=== PATIENT | male | born 1955 | race Caucasian/White ===

== ENCOUNTER → 2016-06-28 | Outpatient (CLI) | payer MEDICARE, OTHER | END | disposition home or self-care (01) | LOC: GMAL 14:27 | PROVIDERS: ATTEND Family Medicine | DX: E53.9 Vitamin B deficiency, unspecified (principal); E55.9 Vitamin D deficiency, unspecified ==

== ENCOUNTER 2016-08-15 17:54 | Observation (INO) | payer OTHER ==
[2016-08-15] MEDS ORDERED: HYDROmorphone HCL INJ 2 MG/ML VIAL IV ONE (18:07)
--- NOTE | 2016-08-15 19:13 | CT ---
EXAM: Lumbar Spine CLINICAL INDICATION: 60-year-old male with multiple falls and pain. COMPARISON: MRI lumbar spine 08/14/2014. TECHNIQUE: CT of the lumbar spine was performed without contrast. This exam was performed according to our departmental dose optimization program which includes use of automated exposure control, adjustment of the mA and/or kV according to patient size and/or use of iterative reconstruction technique. FINDINGS: Overall imaging findings are limited secondary to motion artifact. Since examination dated 08/14/2014 there has been interval development of loss of vertebral body height within the central aspect of L2 concerning for age indeterminate compression deformity. Additionally, age indeterminate loss of anterior and central vertebral body heights of T12. There is normal alignment of the lumbar spine without additional fracture or subluxation. The facets are normal in alignment bilaterally. The posterior elements including the spinous processes are intact. Morphology and attenuation of the vertebral bodies and intervertebral disc spaces is compatible with mild multilevel degenerative change. Multilevel degenerative facet change. Incidentally noted LEFT adrenal adenoma or myelolipoma measuring 2.3 cm. Broad-based disk bulge with central disk herniation and central spinal canal narrowing, bilateral severe neuroforaminal narrowing at the L4-5 level. Mild broad-based disk bulge at L5-S1 with severe bilateral neuroforaminal narrowing. The pre-and paravertebral soft tissues are within normal limits. Extraspinal imaging is within normal limits. IMPRESSION: 1. Loss of vertebral body height concerning for age indeterminate compression deformity of the T12 and L2 vertebral levels. Further evaluation with MRI may be considered. 2. Broad-based disk bulge with central disk herniation and central spinal canal narrowing, bilateral severe neuroforaminal narrowing at the L4-5 level. Electronically signed by: Susan Alan MD 08/15/2016 7:12 PM CDT Workstation: [id number]
--- NOTE | 2016-08-15 19:49 | ED.PDOC ---
History of Present Illness - General Chief Complaint: Back Pain or Injury Stated Complaint: Fell from Wheelchair Time Seen by Provider: 08/15/16 18:07 Source: patient Exam Limitations: no limitations - History of Present Illness Initial Comments: the patient is a 60-year-old male presenting to the emergency room secondary to severe low back pain. The patient has apparently fallen a couple of times in the last few days. He has had low back pain issues in the past and does take chronic pain medications. Today he was in his wheelchair and was thrown forward after he had a pothole. The back pain got worse. No new neurological symptoms. No other injuries. He is tender to palpation from approximately T11 down through T3. No visible deformity. Timing/Duration: 24 hours Severity: severe Improving Factors: immobilization Worsening Factors: movement Associated Symptoms: denies symptoms Allergies/Adverse Reactions: Allergies Morphine Allergy (Verified 10/14/13 21:18) Home Medications: Ambulatory Orders Allopurinol [Zyloprim] 300 mg PO 09/02/13 Amlodipine Besylate 5 mg PO DAILY 09/02/13 Cyanocobalamin [Vitamin B 12] 250 mcg PO 09/02/13 Furosemide [Lasix] 20 mg PO DAILY #20 tab 09/02/13 Hydromorphone HCl 4 mg PO 09/02/13 Multivitamin 0 mg PO DAILY 09/02/13 Potassium Chloride Microencaps [Potassium Chloride Cr] 20 meq PO DAILY #20 tab 09/02/13 Pregabalin [Lyrica] 75 mg PO 09/02/13 Zolpidem Tartrate [Ambien] 10 mg PO 09/02/13 Cipro 10/14/13 Review of Systems - Review of Systems Constitutional: States: no symptoms reported EENTM: States: no symptoms reported Respiratory: States: no symptoms reported Cardiology: States: no symptoms reported Gastrointestinal/Abdominal: States: no symptoms reported Genitourinary: States: no symptoms reported Musculoskeletal: States: see HPI Skin: States: no symptoms reported Neurological: States: no symptoms reported - o change from baseline Endocrine: States: no symptoms reported All other Systems: No Change from Baseline Past Medical History (General) - Patient Medical History Hx Seizures: No Hx Stroke: Yes Hx Dementia: No Hx Asthma: Yes Hx of COPD: No Hx Cardiac Disorders: Yes Hx Congestive Heart Failure: No Hx Pacemaker: No Hx Hypertension: Yes Hx Thyroid Disease: Yes Hx Diabetes: No Hx Gastroesophageal Reflux: Yes Hx Renal Disease: No Hx Cancer: Yes Hx Hepatitis C: No Hx MRSA: Yes - staph MRSA Source:: Wound - Vaccination History Hx Tetanus, Diphtheria Vaccination: No Hx Influenza Vaccination: Yes Hx Pneumococcal Vaccination: Yes - Social History Hx Tobacco Use: No Hx Chewing Tobacco Use: No Hx Alcohol Use: No Hx Substance Use: No Hx Substance Use Treatment: No Hx Depression: No Feels Threatened In Home Enviroment: No Feels Threatened In a Relationship: No Hx Physical Abuse: No Hx Emotional Abuse: No Hx Suspected Abuse: No Family Medical History - Family History Mother Family History: No Known Physical Exam - Physical Exam General Appearance: Alert, Obvious distress Eye Exam: bilateral normal Ears, Nose, Throat: hearing grossly normal, normal ENT inspection, normal pharynx Neck: non-tender, full range of motion Respiratory: chest non-tender, lungs clear, normal breath sounds, no respiratory distress, no accessory muscle use Cardiovascular/Chest: normal peripheral pulses, regular rate, rhythm Peripheral Pulses: radial,right: 2+, radial,left: 2+, dorsalis pedis,right: 2+ Gastrointestinal/Abdominal: soft - morbidly obese Rectal Exam: deferred Back Exam: no vertebral tenderness, CVA tenderness (R), CVA tenderness (L) Extremity: normal range of motion, non-tender, no calf tenderness, normal capillary refill, pedal edema, other - AKA amputation of the left lower extremity Neurologic: alert, oriented x 3 Skin Exam: normal color Comments: Vital Signs - 24 hr 08/15/16 18:05 Temperature 99.1 F Pulse Rate [R 83 Arm] Respiratory 20 Rate Blood Pressure 153/88 [R Arm] O2 Sat by Pulse 97 Oximetry Progress - Progress Progress: 08/15/16 19:50 the patient is a 60-year-old male presenting with back pain from what appears to be an acute compression fracture at L2 and possibly also an acute compression fracture at T12. The patient has received a dose of Dilaudid here. The patient will be admitted for pain control and he will also likely need to seek therapy to be instructed on how to get around given his amputation is already present. The patient may require further radiological evaluation depending on how the fracture sites progress over time. no new neurological symptoms at this time. - EKG/XRAY/CT CT Ordered: No CT Interpretation Call Back: No Departure - Departure Clinical Impression: Compression fracture of lumbar vertebra Qualifiers: Encounter type: initial encounter Fracture type: closed Qualified Code(s): S32.000A - Wedge compression fracture of unspecified lumbar vertebra, initial encounter for closed fracture Disposition: Admit Patient Home Medications: Ambulatory Orders Allopurinol [Zyloprim] 300 mg PO 09/02/13 Amlodipine Besylate 5 mg PO DAILY 09/02/13 Cyanocobalamin [Vitamin B 12] 250 mcg PO 09/02/13 Furosemide [Lasix] 20 mg PO DAILY #20 tab 09/02/13 Hydromorphone HCl 4 mg PO 09/02/13 Multivitamin 0 mg PO DAILY 09/02/13 Potassium Chloride Microencaps [Potassium Chloride Cr] 20 meq PO DAILY #20 tab 09/02/13 Pregabalin [Lyrica] 75 mg PO 09/02/13 Zolpidem Tartrate [Ambien] 10 mg PO 09/02/13 Cipro 10/14/13 Decision To Admit - Decistion To Admit Decision to Admit Reason: Accidental Injury Decision to Admit Date: 08/15/16 Decision to Admit Time: 19:52
--- NOTE | 2016-08-15 20:28 | HP ---
SUPERVISING PHYSICIAN: René Roa MD CHIEF COMPLAINT: Back pain after fall. HISTORY OF PRESENT ILLNESS: This is a 60 year-old male patient who was in his usual state of health using his power wheelchair. He was out in his yard watering his garden. He hit a hole in the ground and went tumbling out of his power wheelchair. There was no loss of consciousness and for the most part he hit the right side of his face and his right shoulder. He also experienced some lower back pain but he says he did not fall on his back today but he has fallen twice in the last week, one time when his walker folded on him and he landed on his buttocks and a day or so later he slipped in the shower and again fell on his buttocks. He said the pain in his lower back has been off and on for the last week since those two incidences and today's injury just worsened the symptoms. He was brought to the Emergency Room and in the Emergency Room he had a lumbar spine CT that per radiology interpretation shows: 1. Loss of vertebral body height concerning for age-indeterminate compression deformity of the T12 and L2 vertebra levels. Further evaluation with MRI may be considered. 2. Broad-based disk bulge with central brandon herniation and central spinal canal narrowing, bilateral severe neuroforaminal of the L4-5 level. He was given Dilaudid in the Emergency Room and it helped with his pain and he has a history of a left [id number] amputation due to osteomyelitis as well as blindness in the right eye. I was called for admission to the hospital. PAST MEDICAL HISTORY: 1. Hypothyroidism. 2. Osteomyelitis of the left leg. 3. Peyronie's disease. 4. Gout. 5. Osteoarthritis. 6. Anxiety and panic attacks. 7. Iron-deficiency anemia. 8. Prostate cancer. 9. Obesity. 10. 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 11. Hypertension. PAST SURGICAL HISTORY: 1. Left above-knee amputation in 2013. 2. Tonsillectomy. 3. Vasectomy. 4. Gastric bypass. 5. Left total knee arthroplasty. 6. Left knee removal of prosthesis and placement of antibiotic spacer. 7. Right total knee arthroplasty. 8. Right ankle surgery. 9. Left hand surgery. CURRENT MEDICATIONS: Per EMR and awaiting verification. ALLERGIES: 1. Morphine. 2. Actos. SOCIAL HISTORY: He is . He has three children. He lives at home. He denies tobacco, ETOH or illicit drug use. REVIEW OF SYSTEMS: GENERAL: Denies fever, fatigue or weight changes. Positive for right-sided pain due to the injury earlier today. HEENT: Denies vision changes, ear pain, sore throat or sinus symptoms. RESPIRATORY: Denies wheezing, shortness of breath or coughing. CARDIAC: Denies chest pain, tachycardia or palpitations. GI: Denies abdominal pain, nausea, vomiting, diarrhea. MUSCULOSKELETAL: As per the history of present illness. GENITOURINARY: Denies hematuria, dysuria or polyuria. NEUROLOGICAL: Denies headache, dizziness or seizures. PHYSICAL EXAMINATION: VITAL SIGNS: Temperature 99.1, pulse rate 83, blood pressure 176/84 in the Emergency Room and is now 153/88. Respiratory rate 20, 02 saturation 97% on room air. GENERAL: This is a 60 year-old obese male patient who is lying in his hospital bed. HEENT: Normocephalic. There is an abrasion with a small amount of ecchymosis to the right lateral scalp area at the level of the right eye. He has an eye patch over his right eye. The left pupil is reactive. Oropharynx is clear. Oral mucous membranes are moist. NECK: Neck is supple without mass. CHEST: Clear to auscultation bilaterally. There is equal rise and fall of the chest with inspiration and expiration. CARDIOVASCULAR: Regular rate and rhythm. ABDOMEN: Soft, rounded, non-tender,. Bowel sounds are positive. BACK: Unremarkable except tender to palpation to the lower thoracic upper lumbar area. EXTREMITIES: No cyanosis or clubbing to the right lower extremity. He has a left above-knee amputation. NEUROLOGIC: He is awake, alert, and oriented x3. LABORATORY AND FILMS: There are no labs to report and films are as per the history of present illness. ASSESSMENT: 1. Compression fracture of T12 and L2 status post multiple falls over the last week. 2. Intractable pain due to #1. 3. Gout 4. Osteoarthritis. 5. History of osteomyelitis with a left above-knee amputation in 2013. PLAN: We will place the patient in observation. I have given him Dilaudid for pain. I have consulted Dr. Villanueva as well as physical therapy. I have also ordered incentive spirometry. We will restart his home medications. At some point, he will need an MRI as an outpatient. Close followup with Dr. Echols as well as his pain doctor. I have ordered some AM labs. He will be on bedrest with frequent turning. Otherwise, we will known to to monitor the patient closely and followup as needed. Dr. Roa is the collaborating physician available for consultation. #[id number] [facility]
[2016-08-15] MEDS: HYDROmorphone HCL INJ 2 MG/ML VIAL IV PRN ×2 (20:40→23:54)
[2016-08-15] MEDS ORDERED: ONDANSETRON INJ 4 MG/2 ML VIAL IV PRN (21:35)
[2016-08-15] MEDS ORDERED: IV SET AND CAP CHANGE INJ INJ SCH (22:00)
[2016-08-15] MEDS: SODIUM CHLORIDE 0.9% (FLUSH) 10 ML SYG IV PRN ×2 (23:34→23:52)
[2016-08-15] MEDS: PREGABALIN 75 MG CAP PO SCH (23:35)
[2016-08-15] MEDS: ENOXAPARIN SODIUM 40 MG/0.4 ML SYG SUBCU SCH (23:35)
[2016-08-15] MEDS: TAMSULOSIN 0.4 MG CAP PO SCH (23:36)
--- NOTE | 2016-08-16 00:41 | PCM.CORE ---
Physician DVT/VTE - Prophylaxis Currently: Patient already on anticoagulation therapy - Nurse DVT Assessment & Total Each Risk Factor Represents 1 Point: Age 41-60, Medical PT at Bed Rest Each Risk Factor is 1 Point: Obesity (BMI >25) DVT Assessment Score: 3 - 3-4 High Risk Treatments: Early Ambulation *, Sequential Compression Device
[2016-08-16] MEDS: HYDROmorphone HCL INJ 2 MG/ML VIAL IV PRN ×5 (04:05→22:18)
[2016-08-16] MEDS: SODIUM CHLORIDE 0.9% (FLUSH) 10 ML SYG IV PRN ×2 (04:05→22:18)
[2016-08-16] MEDS: LEVOTHYROXINE SODIUM 0.025 MG TAB PO SCH (06:37)
[2016-08-16] MEDS: POTASSIUM CHLORIDE 20 MEQ TAB PO SCH (08:48)
[2016-08-16] MEDS: ASPIRIN EC 81 MG TAB PO SCH (08:48)
[2016-08-16] MEDS: ALLOPURINOL 300 MG TAB PO SCH (08:48)
[2016-08-16] MEDS: cloNIDine HCL 0.1 MG TAB PO SCH ×2 (08:48→20:03)
[2016-08-16] MEDS: FUROSEMIDE 40 MG TAB PO SCH (08:48)
[2016-08-16] MEDS: FLUoxetine HCL 20 MG CAP PO SCH (08:48)
[2016-08-16] MEDS: amLODIPine BESYLATE 5 MG TAB PO SCH (08:49)
[2016-08-16] MEDS: BACLOFEN 10 MG TAB PO SCH (08:49)
[2016-08-16] MEDS: PREGABALIN 75 MG CAP PO SCH ×3 (08:49→20:03)
[2016-08-16] MEDS: MEGESTROL ACETATE 40 MG TAB PO SCH ×2 (08:49→20:03)
--- NOTE | 2016-08-16 11:57 | PN ---
DATE: 08/16/16 SUBJECTIVE: The patient complains of pain fairly well-controlled overnight. No nausea or vomiting. No shortness of breath. OBJECTIVE: VITAL SIGNS: Stable overnight. Current temperature 98.8, pulse 76, blood pressure 164/82, this has ranged from 144/79 up to 164/82. His oxygen saturation is 96% on room air, respiratory rate 18. Intake and output is positive 161 milliliters. CHEST: Clear to auscultation bilaterally. HEART: Regular rate and rhythm. ABDOMEN: Benign. EXTREMITIES: Right lower extremity does have some edema and venous stasis changes. He has had a left side above-knee amputation. LABORATORY: White blood count 6.3, hemoglobin 12.6, hematocrit 37.3, platelet count 95,000. Sodium 143, potassium 3.9, chloride 107, C02 of 28, glucose 118. CT scan of the lumbar spine done last night showed loss of vertebral height at T12 and L2 vertebral levels concerning for compression fractures. MRI was recommended. He also has broad-based disk bulge with central disk herniation and central spinal canal narrowing as well as bilateral severe neuroforaminal narrowing at the L4-5 level. ASSESSMENT: 1. Multiple compression fractures with severe intractable pain requiring IV narcotic medication in a patient who is currently nonambulatory secondary to pain, also is status post left above-knee amputation making him high risk for falls. He has already had several falls leading to the current compression fractures. 2. Intractable pain as mentioned above. . 3. History of gout 4. Osteoarthritis. 5. History of osteomyelitis with a left above-knee amputation in 2013. 6. Hypertension. 7. Hypothyroidism. 8. Hyperlipidemia. 9. Benign prostatic hypertrophy. PLAN: We will continue this patient's home medications. Will control his pain , currently is being done with Dilaudid and this seems to be working, will continue that for now. He does have evidence of compression fractures. He needs an MRI with STIR sequence done, hopefully tomorrow and if these are confirmed to be acute compression fractures he will need possible referral to a neurosurgeon. We will also ask Dr. Villanueva to consult tomorrow to see if there is a brace that could help stabilize this patient's back so we can start physical therapy. #[id number] MTDD
[2016-08-16] MEDS ORDERED: IMIPRAMINE HCL 25 MG TAB ONE (19:32)
[2016-08-16] MEDS ORDERED: PRAVASTATIN SODIUM 20 MG TAB ONE (19:33)
[2016-08-16] MEDS ORDERED: CARISOPRODOL 350 MG TAB ONE (19:33)
[2016-08-16] MEDS: IMIPRAMINE HCL 25 MG TAB PO SCH (20:02)
[2016-08-16] MEDS: TAMSULOSIN 0.4 MG CAP PO SCH (20:03)
[2016-08-16] MEDS: CARISOPRODOL 350 MG TAB PO SCH (20:03)
[2016-08-16] MEDS: PRAVASTATIN SODIUM 20 MG TAB PO SCH (20:03)
[2016-08-16] MEDS: ENOXAPARIN SODIUM 40 MG/0.4 ML SYG SUBCU SCH (22:18)
[2016-08-16] MEDS: ZOLPIDEM TARTRATE 10 MG TAB PO PRN (22:18)
[2016-08-17] MEDS: HYDROmorphone HCL INJ 2 MG/ML VIAL IV PRN ×5 (03:54→20:02)
[2016-08-17] MEDS: LEVOTHYROXINE SODIUM 0.025 MG TAB PO SCH (06:03)
[2016-08-17] MEDS: FLUoxetine HCL 20 MG CAP PO SCH (09:12)
[2016-08-17] MEDS: MEGESTROL ACETATE 40 MG TAB PO SCH ×2 (09:12→21:29)
[2016-08-17] MEDS: FUROSEMIDE 40 MG TAB PO SCH (09:12)
[2016-08-17] MEDS: PREGABALIN 75 MG CAP PO SCH ×3 (09:12→21:28)
[2016-08-17] MEDS: ASPIRIN EC 81 MG TAB PO SCH (09:12)
[2016-08-17] MEDS: amLODIPine BESYLATE 5 MG TAB PO SCH (09:12)
[2016-08-17] MEDS: cloNIDine HCL 0.1 MG TAB PO SCH ×2 (09:13→21:28)
[2016-08-17] MEDS: BACLOFEN 10 MG TAB PO SCH (09:13)
[2016-08-17] MEDS: POTASSIUM CHLORIDE 20 MEQ TAB PO SCH (09:13)
[2016-08-17] MEDS: ALLOPURINOL 300 MG TAB PO SCH (09:13)
--- NOTE | 2016-08-17 14:34 | MRI ---
EXAM DESCRIPTION: Lumbar Spine w/o Contrast CLINICAL HISTORY: compression fracture COMPARISON: Reason abnormal CT examination of the lumbar spine TECHNIQUE: MRI of the lumbar spine is performed according to our usual protocol with axial and sagittal multi sequence imaging. Pre and postcontrast imaging of was performed utilizing gadolinium enhancement. FINDINGS: Normal alignment of the vertebral column is present with mild superior endplate compression deformities involving L2 and T12 but without associated marrow edema or significant retropulsed bone to suggest an acute compression deformity. Postcontrast there is no abnormal enhancement present and old injuries are suspected. Overall image quality is degraded by the patient's large size. Retroperitoneum and paraspinous structures are grossly unremarkable. The conus is positioned at the L1 level. The thecal sac tapers below the L3-4 disc level is borderline small with moderate epidural lipomatosis noted. T12-L1 disc level is normal in appearance. L1-2: Disc desiccation and mild annular prominence and mild central impaction of the L2 superior endplate but without edema consistent with an old Schmorl's node or endplate injury. L2-3: the disc is well hydrated. There is no loss of height. There is no bulging. The facets are unremarkable with no significant hypertrophy. There is no stenosis or impingement. L3-4: the disc is well hydrated. There is no loss of height. There is no bulging. The facets are unremarkable with no significant hypertrophy. There is no stenosis or impingement. L4-5: Disc desiccation and broad-based annular bulge with modest right greater than left facet arthropathy. Moderate bilateral foraminal narrowing with thecal sac in the lower range of normal but without severe stenosis. L5-S1: Mild annular bulge with thecal sac in the lower range of normal with moderate right greater than left facet arthropathy and bilateral L5 foraminal narrowing. IMPRESSION: 1. Mild T12 and moderate L2 superior endplate impaction fractures. No associated edema or retropulsed bone is evident in the appearance is that of old mild superior endplate compression fractures. 2. Essentially normal examination from L3-4 cephalad with minimal annular prominence at L1-2. 3. Broad-based annular bulge and moderate right greater than left facet arthropathy at L4-5 with thecal sac lower limits of normal and moderate L4 foraminal narrowing. 4. Milder annular bulge L5-S1 with more advanced right greater than left facet arthropathy, again with bilateral L5 foraminal narrowing with adequate central canal Electronically signed by: René Miranda MD 08/17/2016 2:33 PM CDT
--- NOTE | 2016-08-17 14:57 | MRI ---
Study: MRI of the Thoracic Spine. Indication: compression fracture Technique: Multiplanar, multi sequence MRI of the thoracic spine was obtained without intravenous contrast. Comparison: MRI lumbar, same day. Findings: Acute T9 superior endplate fracture noted with 10% central height loss. The marrow edema parallels the superior endplate. No retropulsion. Acute T10 inferior endplate fracture noted with 15% height loss and surrounding marrow edema. No retropulsion. Minimal marrow edema noted in the posterior superior margin of the T11 vertebral body and may reflect Modic type I endplate changes or a very subtle/early T11 superior endplate fracture. Mild thoracic disc disease noted and most pronounced at T4-T5 where there is a 3.5 mm right paracentral disc extrusion extending slightly above and below the disc space level but without spinal canal narrowing or neural foraminal narrowing at any thoracic disc space level. Impression: Acute T9 and T10 vertebral body fractures as above. These would be amenable to percutaneous vertebral body augmentation as clinically indicated. Mild Modic type I endplate change posterior superior margin T11 vertebral body versus a nondisplaced fracture. Short-term follow-up may prove useful. Electronically signed by: Karl Del Rio MD 08/17/2016 2:55 PM CDT
--- NOTE | 2016-08-17 21:01 | PN ---
DATE: 08/17/16 SUBJECTIVE: The patient is lying in the bed, head elevated. His appetite is not as good as normal. He states that even with slight movement he has excruciating pain radiating from his low thoracic spine around both rib cages towards the front. Any type of twisting action especially makes it worse. He is having difficulty walking because of the severity of the pain. History of retinal infarction apparently with a retinal artery occlusion in the past has resulted in blindness in his right eye. OBJECTIVE: Temperature 95.6, blood pressure 110/66, room air saturation 97%. The patient is awake and alert. He admits to significant pain and hopes that something can be done quickly to assist with relieving that pain. He complains of chronic pain in his lumbar spine area but his main pain is probably in the lower thoracic spine on exam. HEART: Tones somewhat distant. LUNGS: Sounds are somewhat diminished with some rhonchi laterally more on the right than the left. ABDOMEN: Obese yet soft. LABORATORY: White count 6,700, hemoglobin 13. Chemistries show potassium 4.1, BUN 22, creatinine 0.8, glucose 121. Albumin 3.3. MRSA shows no growth. X-RAY: The patient did have lumbar spine MRI which showed advanced degenerative changes. Please refer to the report. The patient did have a thoracic spine MR study which showed an acute T9 and T10 vertebral body compression fracture which the radiologist suggested was amendable to kyphoplasty procedure. Possible fracture also present in T11 end plate with followup necessary. ASSESSMENT: 1. Acute fall about 10 and again 9 days prior to admission. 2. Acute compression vertebral fractures of T9 and 10, and possible end plate of T11 very symptomatic with intractable pain requiring analgesic pain program and further investigation and evaluation for possible kyphoplasty to be considered. 3. 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 4. Osteoarthritis. 5. History of gout. 6. History of osteomyelitis with an left [id number] amputation in 2013. 7. History of hypertension. 8. History of hypothyroidism. 9. History of hyperlipidemia. 10. History of benign prostatic hypertrophy. PLAN: The condition is discussed with Dr. Echols who suggested us to try to get Dr. Alfonso in [facility] or refer to the Interventional Radiologist at [facility] for evaluation for tentative kyphoplasty procedures for pain relief. At this time, it is after hours and the patient and his are discussing whether they would prefer to go to [place] or to [facility] where she had previously had a back surgery performed years ago. This decision will be available and ready in the morning at which time wither [place] or [facility] will be contacted. Copies of the MR studies to accompany the patient and the patient hopefully will be able to be approached with a kyphoplasty procedure and continue on with some significant pain relief. #[id number] MTDD
[2016-08-17] MEDS: PRAVASTATIN SODIUM 20 MG TAB PO SCH (21:28)
[2016-08-17] MEDS: ZOLPIDEM TARTRATE 10 MG TAB PO PRN (21:28)
[2016-08-17] MEDS: CARISOPRODOL 350 MG TAB PO SCH (21:28)
[2016-08-17] MEDS: TAMSULOSIN 0.4 MG CAP PO SCH (21:28)
[2016-08-17] MEDS: IMIPRAMINE HCL 25 MG TAB PO SCH (21:28)
[2016-08-17] MEDS: ENOXAPARIN SODIUM 40 MG/0.4 ML SYG SUBCU SCH (21:29)
[2016-08-18] MEDS: LEVOTHYROXINE SODIUM 0.025 MG TAB PO SCH (05:59)
[2016-08-18] MEDS: HYDROmorphone HCL INJ 2 MG/ML VIAL IV PRN ×3 (06:03→12:34)
[2016-08-18] MEDS: POTASSIUM CHLORIDE 20 MEQ TAB PO SCH (09:00)
[2016-08-18] MEDS: PREGABALIN 75 MG CAP PO SCH (09:00)
[2016-08-18] MEDS: MEGESTROL ACETATE 40 MG TAB PO SCH (09:00)
[2016-08-18] MEDS: cloNIDine HCL 0.1 MG TAB PO SCH (09:02)
[2016-08-18] MEDS: ASPIRIN EC 81 MG TAB PO SCH (09:02)
[2016-08-18] MEDS: amLODIPine BESYLATE 5 MG TAB PO SCH (09:03)
[2016-08-18] MEDS: BACLOFEN 10 MG TAB PO SCH (09:03)
[2016-08-18] MEDS: FLUoxetine HCL 20 MG CAP PO SCH (09:03)
[2016-08-18] MEDS: ALLOPURINOL 300 MG TAB PO SCH (09:03)
[2016-08-18] MEDS: FUROSEMIDE 40 MG TAB PO SCH (09:03)
[2016-08-18 10:29] VITALS: BP 107/68; TEMP 98.9; O2SAT 96
--- NOTE | 2016-08-19 08:56 | DS ---
SUPERVISING PHYSICIAN: René Roa MD DISCHARGE DIAGNOSIS: 1. Acute fall 9 to 10 days prior to admission with acute compression fractures with vertebral fractures of T9 and T10 with possible endplate of T11, very symptomatic with intractable pain, requiring aggressive analgesic pain program and kyphoplasty referral. 2. 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 3. Osteoarthritis. 4. Multiple comorbidities to include gout, hypertension, hypothyroidism, hyperlipidemia, benign prostatic hypertrophy, and history of past osteomyelitis and left [id number] amputation in 2013, making recovery from acute compression fractures difficult. HISTORY OF PRESENT ILLNESS: Mr. Mora is a 60-year-old, male patient who was in his usual state of health using his power wheelchair when he was out in his yard watering his garden. He hit a hole in the ground and went tumbling out of his power wheelchair. There was no loss of consciousness and for the most part, he landed on the right side of his face and his right shoulder. He also experienced some lower back pain, but he says he did not fall on his back on the day of admission, but he has fallen twice in the last week, one time when his walker folded on him and he landed on his buttocks and a day or so later he slipped in the shower and again fell on his buttocks. He said the pain in his lower back has been off and on for the last week since those two incidences and the injury on the day of admission worsened the symptoms and brought himself to the Emergency Department. In the Emergency Department, he had a CT of the lumbar spine that per radiology interpretation shows loss of vertebral body height concerning for age-indeterminate compression deformity of the T12 and L2 vertebral levels. After repeat MRI for confirmation, it was noted that he did have acute compression fractures involving T9 and T10 with some mild Modic type I endplate changes of posterior superior margin of T11 versus a nondisplaced fracture. He was given Dilaudid in the Emergency Room for his pain and it helped a little bit. Given his history of a left [id number] amputation due to osteomyelitis as well as blindness in the right eye, it was felt in the best interest of the patient due to the severity of his pain and his immobility and safety, to be admitted to the hospital for further pain management and to assist with getting into neurosurgery for definitive treatment of the acute fractures. LABORATORY: On admission, white count 6.3 and at discharge was 6.7. Hemoglobin 13.0 and hematocrit 38.7. Platelet count 111,000 with an early left shift. Chemistries showed normal electrolytes both on admission and on discharge. BUN 22, creatinine 0.8, calcium 8.6. Liver functions within normal limits. Alkaline phosphatase was elevated at 144. Urinalysis was within normal limits. MICROBIOLOGY: No specimens other than MRSA surveillance culture collected which showed no growth at 72 hours. RADIOLOGY: Initially, he had a lumbar spine CT in the Emergency Department and per radiologic interpretation, there was note of loss of vertebral body height concerning of age-indeterminate compression deformity at T12 and L2 vertebral levels with broad-based disc bulge and centra disc herniation and central spinal narrowing, bilateral severe neuroforaminal narrowing at L4-L5. This was followed up after admission with a lumbar spine and thoracic spine MRI and per radiologic interpretation, there was note of a mild T12 and moderate L2 superior endplate impaction fracture, no associated edema or retropulsed bone evident, appearance of what is a mild superior endplate compression fracture. Thoracic spine MRI per radiologic interpretation noted acute T9 and T10 vertebral body fractures that would be amenable to percutaneous vertebral body augmentation as clinically indicated. There was note of a mild Modic type 1 endplate change of posterior superior margin of T11 vertebral body versus nondisplaced fracture. HOSPITAL COURSE: Mr. Mora was admitted as noted in history of present illness for acute vertebral fractures for severe pain management and to assist with ambulation as he was a unilateral amputee jyoli-fcc-youy, making it very difficult for him to ambulate safely and to facilitate transfer definitive treatment with neurosurgery. On the morning of discharge, I did talk with Dr. Padron in [place], neurosurgery, who agreed to take the patient in transfer to [facility]. PLAN: The patient was transferred to [facility] to Dr. Padron, neurosurgery, higher level of care for possible kyphoplasty procedure not available at [facility]. He was transferred via ground ambulance secondary to his handicap and inability to mobilize or sit in a wheelchair safely. He was instructed to resume his home medications as prior to arrival to the hospital and followup with Dr. Echols once discharged from [facility] as directed. Diet at discharge was NPO until seen at [facility]. Activity was bedrest until seen by Dr. Padron. Condition was stable, but guarded secondary to acute compression fractures. #[id number] [facility]
== END 2016-08-18 12:50 | disposition short-term general hospital (02) ==
LOC: ER 17:54 → INTOOBSV 20:26 → MS 20:26
PROVIDERS: ADMIT Nurse Practitioner Acute Care; ATTEND Nurse Practitioner Family
DX: S22.070A Wedge compression fracture of T9-T10 vertebra, initial encounter for closed fracture (principal); S22.080A Wedge compression fracture of T11-T12 vertebra, initial encounter for closed fracture; S32.020A Wedge compression fracture of second lumbar vertebra, initial encounter for closed fracture; G89.11 Acute pain due to trauma; M47.816 Spondylosis without myelopathy or radiculopathy, lumbar region; M51.26 Other intervertebral disc displacement, lumbar region; M19.90 Unspecified osteoarthritis, unspecified site; M10.9 Gout, unspecified; I10 Essential (primary) hypertension; E03.9 Hypothyroidism, unspecified; E78.5 Hyperlipidemia, unspecified; N40.0 Benign prostatic hyperplasia without lower urinary tract symptoms; H54.41 Blindness, right eye, normal vision left eye; N48.6 Induration penis plastica; F41.9 Anxiety disorder, unspecified; F41.0 Panic disorder [episodic paroxysmal anxiety]; V00.811A Fall from moving wheelchair (powered), initial encounter; Y93.H2 Activity, gardening and landscaping; Y92.007 Garden or yard of unspecified non-institutional (private) residence as the place of occurrence of the external cause; Z79.82 Long term (current) use of aspirin; Z79.899 Other long term (current) drug therapy; Z88.6 Allergy status to analgesic agent; Z88.8 Allergy status to other drugs, medicaments and biological substances; Z89.612 Acquired absence of left leg above knee; Z85.46 Personal history of malignant neoplasm of prostate; Z86.2 Personal history of diseases of the blood and blood-forming organs and certain disorders involving the immune mechanism; Z98.84 Bariatric surgery status; Z98.52 Vasectomy status; Z96.652 Presence of left artificial knee joint
CPT/HCPCS: 36415 ×2; 72131; 72146; 72148; 80053 ×2; 81001; 85025 ×2; 87070; 94760 ×14; 96372 ×3; 96374; 96376 ×4; 99284; G0378; J1170 ×16; J1650 ×3; J8999 ×5

== ENCOUNTER 2016-08-26 12:12 | Emergency (ER) | payer OTHER ==
[2016-08-26 12:34] VITALS: TEMP 97.9
[2016-08-26] MEDS ORDERED: HYDROmorphone HCL INJ 2 MG/ML VIAL IM ONE (12:45)
--- NOTE | 2016-08-26 12:52 | ED.PDOC ---
History of Present Illness - General Chief Complaint: Back Pain or Injury Stated Complaint: back pain Time Seen by Provider: 08/26/16 12:38 Source: patient Exam Limitations: no limitations - History of Present Illness Initial Comments: Patient presents with mid back pain. He recently had surgery for T11 fracture ( two weeks ago). He has a left AKA. He mowed 3 acres with a riding mower yesterday and now he is in so much pain that he can't sleep. He is taking hydrocodone but he says it is not enough. He is worried that he might have worsened something by his physical activity. Pain is constant, non-radiating, and aching. Multiple previous episodes. Timing/Duration: 24 hours Severity: moderate Improving Factors: rest Worsening Factors: movement Associated Symptoms: denies symptoms Allergies/Adverse Reactions: Allergies Morphine Allergy (Verified 10/14/13 21:18) Home Medications: Ambulatory Orders Allopurinol [Zyloprim] 300 mg PO DAILY 09/02/13 Amlodipine Besylate 5 mg PO DAILY 09/02/13 Cyanocobalamin [Vitamin B 12] 1,000 mcg PO DAILY 09/02/13 Multivitamin 2 tablet PO DAILY 09/02/13 Pregabalin [Lyrica] 150 mg PO TID 09/02/13 Zolpidem Tartrate [Ambien] 10 mg PO BEDTIME 09/02/13 Aspirin [Aspirin Adult Low Dose] 81 mg PO DAILY 08/15/16 Baclofen 10 mg PO DAILY 08/15/16 Carisoprodol 350 mg PO BEDTIME 08/15/16 Cholecalciferol [Vitamin D3] 5,000 unit PO DAILY 08/15/16 Clonidine HCl 0.1 mg PO BID 08/15/16 Ferrous Sulfate [Iron] 65 mg PO BEDTIME 08/15/16 Fluoxetine HCl [Prozac] 40 mg PO DAILY 08/15/16 Furosemide [Lasix] 80 mg PO DAILY 08/15/16 Imipramine HCl 50 mg PO BEDTIME 08/15/16 Levothyroxine Sodium [Synthroid] 0.025 mg PO 0700 08/15/16 Lovastatin 20 mg PO BEDTIME 08/15/16 Megestrol Acetate 20 mg PO BID 08/15/16 Potassium Chloride Microencaps [Potassium Chloride Cr] 40 meq PO DAILY 08/15/16 Tamsulosin [Flomax] 0.4 mg PO BEDTIME 08/15/16 Review of Systems - Review of Systems Constitutional: States: no symptoms reported EENTM: States: no symptoms reported Respiratory: States: no symptoms reported Cardiology: States: no symptoms reported Gastrointestinal/Abdominal: States: no symptoms reported Genitourinary: States: no symptoms reported Musculoskeletal: States: see HPI Skin: States: no symptoms reported Neurological: States: no symptoms reported Endocrine: States: no symptoms reported Hematologic/Lymphatic: States: no symptoms reported Past Medical History (General) - Patient Medical History Hx Seizures: No Hx Stroke: Yes Hx Dementia: No Hx Asthma: No Hx of COPD: No Hx Cardiac Disorders: Yes Hx Congestive Heart Failure: No Hx Pacemaker: No Hx Hypertension: Yes Hx Thyroid Disease: Yes Hx Diabetes: No Hx Gastroesophageal Reflux: Yes Hx Renal Disease: No Hx Cancer: Yes - Prostate Hx Hepatitis C: No Hx MRSA: Yes MRSA Source:: Wound Surgical History: gastric bypass, tonsillectomy - Vaccination History Hx Tetanus, Diphtheria Vaccination: No Hx Influenza Vaccination: Yes Hx Pneumococcal Vaccination: Yes - Social History Hx Tobacco Use: Yes Hx Chewing Tobacco Use: No Hx Alcohol Use: No Hx Substance Use: No Hx Substance Use Treatment: No Hx Depression: No Hx Physical Abuse: No Hx Emotional Abuse: No Hx Suspected Abuse: No Family Medical History - Family History Mother Family History: No Known Physical Exam - Physical Exam General Appearance: Alert Neck: non-tender, full range of motion, supple Respiratory: lungs clear Cardiovascular/Chest: regular rate, rhythm Gastrointestinal/Abdominal: normal bowel sounds, non tender, soft Back Exam: vertebral tenderness - over T9-L1 Extremity: other - left AKA Progress - Progress Progress: 08/26/16 14:34 CT thoracic and lumbar vertebrae showed surgical hardware in place. No definite new fractures. Patient given a short term supply of Percocet to take at night with instructions to call his surgeon and his pcp today and schedule an appointment. Departure - Departure Clinical Impression: Fracture, thoracic vertebra, compression Disposition: Discharge to Home or Self Care Departure Forms: ED Discharge - Pt. Copy, Patient Portal Self Enrollment Diet: resume usual diet Activity: other - as per your surgeon's instructions Referrals: Adrian Echols III, MD [Primary Care Provider] - 1-2 Weeks Home Medications: Ambulatory Orders Allopurinol [Zyloprim] 300 mg PO DAILY 09/02/13 Amlodipine Besylate 5 mg PO DAILY 09/02/13 Cyanocobalamin [Vitamin B 12] 1,000 mcg PO DAILY 09/02/13 Multivitamin 2 tablet PO DAILY 09/02/13 Pregabalin [Lyrica] 150 mg PO TID 09/02/13 Zolpidem Tartrate [Ambien] 10 mg PO BEDTIME 09/02/13 Aspirin [Aspirin Adult Low Dose] 81 mg PO DAILY 08/15/16 Baclofen 10 mg PO DAILY 08/15/16 Carisoprodol 350 mg PO BEDTIME 08/15/16 Cholecalciferol [Vitamin D3] 5,000 unit PO DAILY 08/15/16 Clonidine HCl 0.1 mg PO BID 08/15/16 Ferrous Sulfate [Iron] 65 mg PO BEDTIME 08/15/16 Fluoxetine HCl [Prozac] 40 mg PO DAILY 08/15/16 Furosemide [Lasix] 80 mg PO DAILY 08/15/16 Imipramine HCl 50 mg PO BEDTIME 08/15/16 Levothyroxine Sodium [Synthroid] 0.025 mg PO 0700 08/15/16 Lovastatin 20 mg PO BEDTIME 08/15/16 Megestrol Acetate 20 mg PO BID 08/15/16 Potassium Chloride Microencaps [Potassium Chloride Cr] 40 meq PO DAILY 08/15/16 Tamsulosin [Flomax] 0.4 mg PO BEDTIME 08/15/16 Additional Instructions: Take medications as prescribed. Do not take the Percocet with the hydrocodone. Call your surgeon to schedule an evaluation of your back. Call your primary care physician or pain control physician to schedule an appointment concerning future pain control.
[2016-08-26 13:39] VITALS: BP 135/76; O2SAT 95
--- NOTE | 2016-08-26 13:46 | CT ---
EXAM DESCRIPTION: Thoracic Spine CLINICAL HISTORY: back pain, recent surgery COMPARISON: MRI August 17, 2016 TECHNIQUE: Noncontrast transaxial CT images of the thoracic spine are obtained with coronal and sagittal reconstructed images. This exam was performed according to our departmental dose-optimization program, which includes automated exposure control, adjustment of the mA and/or kV according to patient size and/or use of iterative reconstruction technique . FINDINGS: There are interval postprocedural changes from vertebral augmentation of the compression deformities at T9 and T10. Less than 25% loss of vertebral body height is seen. There is evidence of methylmethacrylate extending into the epidural plexus veins posterior to the vertebral bodies the spinal canal contributing to the mild narrowing of the spinal canal. There is some left foraminal encroachment at T9-10. There is also some methylmethacrylate in the anterior and lateral veins. Remote anterior wedge compression deformity of T12 is seen. No new compression deformity or loss of vertebral body height is seen. Normal alignment of the thoracic spine is seen. Anterior right disc bulging and marginal endplate osteophytes are seen throughout the mid to lower thoracic spine. Osseous structures are diffusely osteopenic. Surrounding soft tissues are unremarkable. Linear areas of probable atelectasis in the lung bases is seen. IMPRESSION: Interval postsurgical changes from vertebral augmentation at T9 and T10 without progressive loss of vertebral body height or new compression fracture deformity of the thoracic spine. Some methylmethacrylate extending into the anterior and posterior venous plexus is noted. This contributes to mild spinal canal stenosis from T9 through T10 with mild left foraminal encroachment at T9-10. Remote compression fracture deformity of the superior plate of T12 is noted. Multilevel disc degenerative changes and facet arthropathy of the thoracic spine is seen. Electronically signed by: Kris Arana MD 08/26/2016 1:44 PM CDT
--- NOTE | 2016-08-26 13:52 | CT ---
EXAM DESCRIPTION: Lumbar Spine CLINICAL HISTORY: 60 years, Male, back pain , recent surgery COMPARISON: August 15, 2016 TECHNIQUE: CT of the lumbar spine was performed without IV contrast. This exam was performed according to our departmental dose-optimization program, which includes automated exposure control, adjustment of the mA and/or kV according to patient size and/or use of iterative reconstruction technique. FINDINGS: There is subtle lucency involving the superior endplate of T11 only partially included on the first image of this exam. This probably stable from August 15, 2016. Mild compression of the L2 body is related to a Schmorl's node in the superior endplate of L2 and is stable. No acute lumbar vertebral body compression fracture or subluxation is identified. Degenerative changes are noted in the sacroiliac joints bilaterally including fusion of the bilateral sacroiliac joints anteriorly. The intervertebral disc spaces are well-maintained. There is facet joint degeneration at several levels in the lumbar spine, worse at L5-S1 with possible mild central canal or neuroforaminal stenosis at L4-5 and L5-S1. The paraspinal and visualized retroperitoneal soft tissues are unremarkable except for a 2.3 cm left adrenal myelolipoma of doubtful clinical significance. IMPRESSION: Facet joint degeneration and ligamentum flavum thickening at several levels in the lower lumbar spine resulting in mild central canal and mild neuroforaminal stenosis at L4-5 and L5-S1. Subtle lucency in the superior endplate of T11 only partially included on the first image of this exam. No definite T11 compression deformity but, if clinically suspicious of T11 compression fracture, CT or MRI of this level is recommended. Degenerative changes in both sacroiliac joints including anterior fusion bilaterally. 2.3 cm left adrenal myelolipoma. Electronically signed by: Irwin Reddy MD 08/26/2016 1:50 PM CDT Workstation: [email or web address]
== END 2016-08-26 14:45 | disposition home or self-care (01) ==
LOC: ER 12:12
DX: S22.089D Unspecified fracture of T11-T12 vertebra, subsequent encounter for fracture with routine healing (principal); I10 Essential (primary) hypertension; Z86.73 Personal history of transient ischemic attack (TIA), and cerebral infarction without residual deficits; Z89.612 Acquired absence of left leg above knee; Z88.6 Allergy status to analgesic agent; Z79.82 Long term (current) use of aspirin; Z79.899 Other long term (current) drug therapy; Z86.14 Personal history of Methicillin resistant Staphylococcus aureus infection; Z85.46 Personal history of malignant neoplasm of prostate; Z98.84 Bariatric surgery status
CPT/HCPCS: 72128; 72131; J1170

== ENCOUNTER → 2016-09-01 | Outpatient (CLI) | payer OTHER | LOC: GMAL 17:31 | PROVIDERS: ATTEND Family Medicine | DX: E55.9 Vitamin D deficiency, unspecified (principal) ==

== ENCOUNTER → 2016-12-15 | Outpatient (CLI) | payer OTHER ==
--- NOTE | 2016-12-16 18:13 | NM ---
EXAM DESCRIPTION: Bone Scan, 3Phase CLINICAL HISTORY: HX OF OSTEOMYELITIS COMPARISON: None Available. RADIOPHARMACEUTICAL: 28 mCi technetium 99 M MDP IV FINDINGS: The flow is normal. Blood pool images demonstrate minimal soft tissue uptake over the region of the patella. Delayed static imaging demonstrates photopenia suggestive of a total knee arthroplasty. Mild uptake is observed in the femur and tibia consistent with a knee arthroplasty. There is moderate uptake in the patella. The findings are felt most consistent with trauma and/or loosening. No evidence is seen to suggest osteomyelitis. IMPRESSION: 1. The exam suggests a right total knee arthroplasty. 2. Uptake is observed in the patellofemoral and felt most consistent with loosening of a portion of the prosthesis or trauma or arthritis. No evidence of osteomyelitis is seen. Electronically signed by: Adrian Menjivar MD 12/16/2016 6:12 PM CDT
== END | disposition home or self-care (01) ==
LOC: NM 09:09
PROVIDERS: ATTEND Orthopaedic Surgery
DX: Z87.39 Personal history of other diseases of the musculoskeletal system and connective tissue (principal)
CPT/HCPCS: 78315; A9503

== ENCOUNTER → 2017-02-24 | Outpatient (CLI) | payer OTHER | END | disposition home or self-care (01) | LOC: GMAL 14:04 | PROVIDERS: ATTEND Family Medicine | DX: R53.82 Chronic fatigue, unspecified (principal) ==

== ENCOUNTER → 2017-07-03 | Outpatient (CLI) | payer OTHER | LOC: GMA 16:41 | PROVIDERS: ATTEND Family Medicine | DX: R53.82 Chronic fatigue, unspecified (principal) ==

== ENCOUNTER → 2017-10-18 | Outpatient (CLI) | payer OTHER | LOC: GMAL 16:58 | PROVIDERS: ATTEND Family Medicine | DX: M10.9 Gout, unspecified (principal) ==

== ENCOUNTER 2017-10-25 03:11 | Inpatient (IN) | payer OTHER ==
--- NOTE | 2017-10-25 03:52 | ED.PDOC ---
History of Present Illness - General Chief Complaint: Fever Stated Complaint: my leg is killing me, Im freezing, and SOB Time Seen by Provider: 10/25/17 03:29 Source: patient Exam Limitations: no limitations - History of Present Illness Initial Comments: Tashi Mora 62 y/o male stated his right leg was red and with sharp pains started about 2200 H last night then gradually got worse with fever/chills.and sob/felt like wheezing.No diabetes stated right leg chronically swelled up. Timing/Duration: this evening Fever Severity/Quality: greater than 102 F Fever Therapy ZIGZAG ELASTIC ATTACHER: none Associated Symptoms: other - see hpi Review of Systems - Review of Systems Constitutional: States: no symptoms reported EENTM: States: no symptoms reported Respiratory: States: see HPI, wheezing Cardiology: States: no symptoms reported Gastrointestinal/Abdominal: States: no symptoms reported Genitourinary: States: no symptoms reported Musculoskeletal: States: see HPI Skin: States: see HPI Neurological: States: no symptoms reported Past Medical History (General) - Patient Medical History Hx Seizures: No Hx Stroke: Yes Hx Dementia: No Hx Asthma: No Hx of COPD: No Hx Cardiac Disorders: Yes Hx Congestive Heart Failure: No Hx Pacemaker: No Hx Hypertension: Yes Hx Thyroid Disease: Yes Hx Diabetes: No Hx Gastroesophageal Reflux: Yes Hx Renal Disease: No Hx Cancer: Yes - Prostate Hx Hepatitis C: No Hx MRSA: Yes MRSA Source:: Wound Surgical History: gastric bypass, tonsillectomy, other - left AKA;knee right - Vaccination History Hx Tetanus, Diphtheria Vaccination: No Hx Influenza Vaccination: Yes Hx Pneumococcal Vaccination: Yes - Social History Hx Tobacco Use: Yes Hx Chewing Tobacco Use: No Hx Alcohol Use: No Hx Substance Use: No Hx Substance Use Treatment: No Hx Depression: No Hx Physical Abuse: No Hx Emotional Abuse: No Hx Suspected Abuse: No Family Medical History - Family History Mother Family History: No Known Hx Family Congestive Heart Failure: Yes - mom Hx Family;Other: dad-Liver cirrhosis Physical Exam - Physical Exam General Appearance: Alert, Comfortable, No apparent distress, Obese Eye Exam: bilateral normal ENT Exam: normal ENT inspection, hearing grossly normal Neck: supple, normal inspection, trachea midline Respiratory: chest non-tender, no respiratory distress, no accessory muscle use , wheezing - mild Cardiovascular/Chest: normal peripheral pulses, regular rate, rhythm, no murmur Gastrointestinal/Abdominal: non tender, soft Extremity: inflammation - erythema ,warmth, pedal edema, other - tenderness right leg;Left AKA Neurologic: alert, oriented x 3 Skin Exam: warm/dry Progress - Progress Progress: 10/25/17 04:47 Vital Signs - 8 hr 10/25/17 10/25/17 03:20 03:43 Temperature 103.5 F H Pulse Rate [ 100 H Right] Respiratory 20 20 Rate Blood Pressure 157/73 [Left Arm] O2 Sat by Pulse 95 Oximetry - Results/Orders Results/Orders: 10/25/17 03:30 COMPLETE METABOLIC PROFILE Stat LACTIC ACID Stat 10/25/17 03:56 BLOOD CULTURE Stat URINALYSIS Stat 10/25/17 05:11 Vancomycin HCl Inj 1,000 mg Sodium Chloride 0.9% 250Ml [NS 250ml] 250 ml IVPB ONCE Laboratory Results - last 24 hr 10/25/17 03:30 WBC 9.5 RBC 4.53 L Hgb 14.3 Hct 42.7 MCV 94.2 H MCH 31.5 H MCHC 33.5 RDW 14.9 H Plt Count 72 L MPV 8.9 Absolute Neuts (auto) 8.60 H Absolute Lymphs (auto) 0.40 L Absolute Monos (auto) 0.40 Absolute Eos (auto) 0.10 Absolute Basos (auto) 0.10 Neutrophils % 90.4 H Lymphocytes % 4.3 L Monocytes % 3.8 Eosinophils % 0.8 L Basophils % 0.7 - EKG/XRAY/CT XRAY: chest - no acute disease Departure - Departure Clinical Impression: Cellulitis of leg without foot, right, Temporary low platelet count Time of Disposition: 06:08 Disposition: Admit Patient Condition: Fair Departure Forms: Patient Portal Self Enrollment Referrals: Adrian Echols III, MD [Primary Care Provider] - 1-2 Weeks Home Medications: Ambulatory Orders Allopurinol [Zyloprim] 300 mg PO DAILY 09/02/13 Amlodipine Besylate 5 mg PO DAILY 09/02/13 Cyanocobalamin [Vitamin B 12] 1,000 mcg PO DAILY 09/02/13 Multivitamin 2 tablet PO DAILY 09/02/13 Pregabalin [Lyrica] 150 mg PO TID 09/02/13 Zolpidem Tartrate [Ambien] 10 mg PO BEDTIME 09/02/13 Aspirin [Aspirin Adult Low Dose] 81 mg PO DAILY 08/15/16 Baclofen 10 mg PO DAILY 08/15/16 Carisoprodol 350 mg PO BEDTIME 08/15/16 Cholecalciferol [Vitamin D3] 5,000 unit PO DAILY 08/15/16 Clonidine HCl 0.1 mg PO BID 08/15/16 Ferrous Sulfate [Iron] 65 mg PO BEDTIME 08/15/16 Fluoxetine HCl [Prozac] 40 mg PO DAILY 08/15/16 Furosemide [Lasix] 80 mg PO DAILY 08/15/16 Imipramine HCl 50 mg PO BEDTIME 08/15/16 Levothyroxine Sodium [Synthroid] 0.025 mg PO 0700 08/15/16 Lovastatin 20 mg PO BEDTIME 08/15/16 Megestrol Acetate 20 mg PO BID 08/15/16 Potassium Chloride Microencaps [Potassium Chloride Cr] 40 meq PO DAILY 08/15/16 Tamsulosin [Flomax] 0.4 mg PO BEDTIME 08/15/16 Decision To Admit - Decistion To Admit Decision to Admit Reason: Admit from ER Decision to Admit Date: 10/25/17 - D/ W Jose Capone-ANP/Hospitalist Decision to Admit Time: 06:06
--- NOTE | 2017-10-25 04:26 | RAD ---
Chest single view on 10/25/2017 CLINICAL INDICATION: Wheezing COMPARISON: 09/02/2013 FINDINGS: There is slight elevation of the right hemidiaphragm. There is mild linear atelectasis or scarring in the right lung base. The lungs are otherwise clear. Cardiac, hilar and mediastinal contours are within normal limits. IMPRESSION: No acute disease. Electronically signed by: Tulio Husain 10/25/2017 4:25 AM CDT
[2017-10-25] MEDS ORDERED: fentaNYL CITRATE INJ 50 MCG/ML AMP IV ONE ×2 (04:46→07:30)
[2017-10-25] MEDS ORDERED: ACETAMINOPHEN 325 MG TAB PO ONE (04:48)
[2017-10-25] MEDS ORDERED: VANCOMYCIN HCL INJ 1,000 MG in SODIUM CHLORIDE 0.9% 250ML 250 ML IVPB ONE (05:11)
[2017-10-25] MEDS ORDERED: SODIUM CHLORIDE 0.9% 250ML 250 ML ONE ×3 (05:16→20:38)
[2017-10-25] MEDS ORDERED: VANCOMYCIN HCL INJ 1,000 MG VIAL IVPB ONE ×3 (05:16→20:39)
--- NOTE | 2017-10-25 06:58 | HP ---
SUPERVISING PHYSICIAN: René Roa MD CHIEF COMPLAINT: Fever and right lower leg pain. HISTORY OF PRESENT ILLNESS: This is a 62-year-old male patient who complained of right lower leg redness with pain that started the night prior to his admission. He felt like the pain in his lower leg had been going on for about month, but it worsened to the point last night that he had to come to the Emergency Room plus he had a fever of over 103. In the Emergency Room, his vital signs were basically within normal limits with the exception of his temperature of 103.6 and his heart rate got up to as high as 110. His laboratory showed a normal white count of 9,500, but he had a left shift on differential. Electrolytes were basically within normal limits, but his glucose was 175 and his lactic acid was 2.1. In the Emergency Room, blood cultures were drawn. His right lower leg was warm to touch and he does have some chronic lower leg ischemic changes, but his lower leg was edematous, warm to touch and erythematous. There was no noted drainage or fluctuance. He was given vancomycin as well as some fentanyl and Tylenol. The patient was admitted to the hospital for right lower leg cellulitis. PAST MEDICAL HISTORY: 1. Hypothyroidism. 2. Osteomyelitis of the left leg resulting in amputation in 2013. 3. Peyronie's disease. 4. Gout. 5. Osteoarthritis. 6. Anxiety and panic attacks. 7. Iron deficiency anemia. 8. Prostate cancer. 9. Obesity. 10. 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 11. Hypertension. 12. History of compression fracture of T12 and L2 approximately one year ago. PAST SURGICAL HISTORY: 1. Left nwily-jga-vybm amputation in 2013. 2. Tonsillectomy. 3. Vasectomy. 4. Gastric bypass surgery. 5. Left total knee arthroplasty. 6. Left knee removal of prosthesis and placement of antibiotic spacer. 7. Right total knee arthroplasty. 8. Right ankle surgery. 9. Left hand surgery. OUTPATIENT MEDICATIONS: Per the EMR and awaiting verification. ALLERGIES: MORPHINE, ACTOS. SOCIAL HISTORY: He is . He lives in [place]. He has three children. He denies any tobacco, ETOH or illicit drug use. REVIEW OF SYSTEMS: GENERAL: Positive for fatigue and fever. Negative for weight changes. HEENT: Negative for sinus symptoms, ear pain, vision changes or sore throat. RESPIRATORY: Negative for wheezing, coughing or shortness of breath. CARDIAC: Negative for chest pain, palpitations or tachycardia. GASTROINTESTINAL: Negative for nausea, vomiting, diarrhea, constipation or abdominal pain. GENITOURINARY: Negative for hematuria, dysuria or polyuria. MUSCULOSKELETAL: Negative for arthralgias, myalgias. EXTREMITIES: Positive for right lower leg pain. He does have a history of left wvyjd-lgb-mjvw amputation. SKIN: Positive for redness and swelling to the right lower leg. NEUROLOGIC: Negative for headache, dizziness or seizures. PSYCHIATRIC: Positive for insomnia due to right lower leg pain and fever times 48 hours. PHYSICAL EXAMINATION: VITAL SIGNS: Temperature 99. Pulse 87. Blood pressure 111/68. Respiratory rate 20. O2 saturation 94% on 2 liters nasal cannula. GENERAL: This is a 62-year-old, morbidly obese, male patient who is lying in his hospital bed. He is in no acute distress. HEENT: Normocephalic. He is blind in the right eye. Oropharynx is clear. NECK: Supple without mass. RESPIRATORY: Essentially clear to auscultation bilaterally. It is diminished at the bases. CHEST: There is equal rise and fall of the chest with inspiration and expiration. CARDIOVASCULAR: Regular rate and rhythm. GASTROINTESTINAL: Abdomen is soft, nondistended, nontender. Bowel sounds are positive. EXTREMITIES: He has a left fwemk-thi-yvvb amputation. Right lower leg shows chronic ischemic changes, but it is also erythematous from the knee to the ankle with +1 edema. There is no fluctuance or drainage. It is warm to touch. Pulse +1. NEUROLOGIC: He is lethargic. He answers questions appropriately and is oriented times three, but he falls asleep frequently during conversations. LABORATORY: Labs are as per history of present illness as well as his magnesium was 1.6 after admission. CRP and ESR are pending. Chest x-ray shows no acute disease. All other labs and films have been reviewed via the EMR. IMPRESSION: 1. Sepsis due to right lower leg cellulitis with an admission temperature of 103.5 and heart rate of 110. 2. History of osteomyelitis of the left leg resulting in qcvpi-dkt-brrn amputation in 2013. 3. Gout. 4. Osteoarthritis. 5. History of compression fracture of T12 and L2 in August of 2016. 6. Hypertension. PLAN: We will admit the patient to the hospital. I have given him some additional fluids as well as we will continue the vancomycin per pharmacy protocol. We will elevate the leg and I will do an ultrasound as well as an x- ray of that lower extremity. I have given him Lovenox for DVT prophylaxis and Protonix for ulcer prophylaxis. I have encouraged good pulmonary hygiene. I also ordered labs for in the morning. We will continue to monitor the patient closely and follow as needed. Dr. Roa is the collaborating physician and available for consultation. #[id number] [facility]
[2017-10-25] MEDS ORDERED: VANCOMYCIN HCL INJ 500 MG in SODIUM CHLORIDE 0.9% 100ML 100 ML IVPB ONE (07:04)
[2017-10-25] MEDS ORDERED: VANCOMYCIN HCL INJ 500 MG VIAL ONE ×3 (08:50→20:38)
[2017-10-25] MEDS ORDERED: SODIUM CHLORIDE 0.9% 100ML 100 ML IVPB ONE (08:51)
[2017-10-25] MEDS ORDERED: SODIUM CHLORIDE 0.45% 1000ML 1,000 ML IVS ONE (09:32)
[2017-10-25] MEDS ORDERED: VANCOMYCIN PER PHARMACY INJ SCH (10:30)
[2017-10-25] MEDS ORDERED: PANTOPRAZOLE SODIUM IV 40 MG VIAL IV SCH (10:30)
[2017-10-25] MEDS: ENOXAPARIN SODIUM 40 MG/0.4 ML SYG SUBCU SCH (10:33)
[2017-10-25] MEDS: IV SET AND CAP CHANGE INJ INJ SCH (10:33)
[2017-10-25] MEDS ORDERED: MAGNESIUM SULFATE PREMIX 2GM 2 GM in PREMIX BAG 1 BAG IVPB ONE (10:44)
[2017-10-25] MEDS ORDERED: MAGNESIUM SULFATE PREMIX 2GM 50 ML IVPB ONE (11:09)
[2017-10-25] MEDS ORDERED: DEXTROSE 50% 25 GM/50 ML SYG IV PRN (12:31)
[2017-10-25] MEDS ORDERED: GLUCAGON INJ 1 MG VIAL SUBCU PRN (12:31)
[2017-10-25] MEDS: HYDROcodone 10MG/APAP 325MG 1 EA TAB PO PRN ×2 (13:20→21:52)
[2017-10-25] MEDS: VANCOMYCIN HCL INJ 1,000 MG, VANCOMYCIN HCL INJ 500 MG in SODIUM CHLORIDE 0.9% 250ML 25... IVPB SCH ×2 (13:31→21:52)
[2017-10-25] MEDS: fentaNYL CITRATE INJ 50 MCG/ML AMP IV PRN ×3 (13:45→22:08)
--- NOTE | 2017-10-25 14:32 | US ---
EXAM DESCRIPTION: Venous,Lower Extremity RT: ULTRASOUND. CLINICAL HISTORY: RLL cellulitis COMPARISON: Radiographs of the right lower extremity on the same visit. TECHNIQUE: Niño-scale and doppler sonographic evaluation of the deep venous system of the right lower extremity. FINDINGS: Doppler evaluation shows normal color flow and normal phasicity and augmentation of the right common femoral vein, femoral vein, popliteal vein, greater saphenous vein, peroneal, and posterior tibial vein. The right lower extremity deep veins showed normal occlusion with transducer pressure. Niño-scale survey showed no echogenic thrombus within these veins. IMPRESSION: 1. Duplex ultrasound evaluation of the right lower extremity deep venous system showing no evidence of thrombosis. Electronically signed by: Eduardo Lima MD 10/25/2017 2:30 PM CDT
[2017-10-25] MEDS: INSULIN LISPRO 100 UNITS/ML PEN SUBCU SCH ×2 (16:57→21:51)
[2017-10-25] MEDS ORDERED: MEGESTROL ACETATE 40 MG TAB ONE (20:42)
[2017-10-25] MEDS ORDERED: IMIPRAMINE HCL 25 MG TAB ONE (20:42)
[2017-10-25] MEDS ORDERED: NON-FORMULARY MEDICATION 1 EA MIS (Lovastatin [Lovastatin] 20 MG) PO SCH (21:00)
[2017-10-25] MEDS: TAMSULOSIN 0.4 MG CAP PO SCH (21:49)
[2017-10-25] MEDS: PREGABALIN 100 MG CAP PO SCH (21:49)
[2017-10-25] MEDS: IMIPRAMINE HCL 50 MG PO SCH ×2 (21:50→22:30)
[2017-10-25] MEDS: CARISOPRODOL 350 MG TAB PO SCH ×2 (21:51→22:30)
[2017-10-25] MEDS: MEGESTROL ACETATE 20 MG PO SCH (21:51)
[2017-10-25] MEDS: ZOLPIDEM TARTRATE 10 MG TAB PO SCH (21:51)
[2017-10-25] MEDS: SODIUM CHLORIDE 0.9% (FLUSH) 10 ML SYG IV SCH (22:30)
[2017-10-26] MEDS: fentaNYL CITRATE INJ 50 MCG/ML AMP IV PRN ×8 (00:17→23:27)
[2017-10-26] MEDS ORDERED: VANCOMYCIN HCL INJ 500 MG VIAL ONE (04:18)
[2017-10-26] MEDS ORDERED: SODIUM CHLORIDE 0.9% 250ML 250 ML ONE (04:19)
[2017-10-26] MEDS ORDERED: VANCOMYCIN HCL INJ 1,000 MG VIAL IVPB ONE ×3 (04:19→19:29)
[2017-10-26] MEDS: LEVOTHYROXINE SODIUM 0.025 MG TAB PO SCH (06:33)
[2017-10-26] MEDS: VANCOMYCIN HCL INJ 1,000 MG, VANCOMYCIN HCL INJ 500 MG in SODIUM CHLORIDE 0.9% 250ML 25... IVPB SCH (07:15)
[2017-10-26] MEDS: INSULIN LISPRO 100 UNITS/ML PEN SUBCU SCH ×4 (07:15→21:04)
[2017-10-26] MEDS: SODIUM CHLORIDE 0.9% (FLUSH) 10 ML SYG IV PRN ×4 (07:18→16:28)
[2017-10-26] MEDS ORDERED: amLODIPine BESYLATE 5 MG TAB ONE (07:33)
[2017-10-26] MEDS ORDERED: MEGESTROL ACETATE 40 MG TAB ONE (07:33)
[2017-10-26] MEDS ORDERED: FLUoxetine HCL 20 MG CAP ONE (07:34)
[2017-10-26] MEDS: ALLOPURINOL 300 MG TAB PO SCH (08:37)
[2017-10-26] MEDS: PREGABALIN 100 MG CAP PO SCH ×3 (08:37→21:04)
[2017-10-26] MEDS: ASPIRIN (ENTERIC COATED) 81 MG TAB PO SCH (08:37)
[2017-10-26] MEDS: POTASSIUM CHLORIDE 20 MEQ TAB PO SCH (08:38)
[2017-10-26] MEDS: BACLOFEN 10 MG TAB PO SCH (08:38)
[2017-10-26] MEDS: SODIUM CHLORIDE 0.9% (FLUSH) 10 ML SYG IV SCH ×2 (08:39→21:05)
[2017-10-26] MEDS: FLUoxetine HCL 20 MG CAP PO SCH (08:44)
[2017-10-26] MEDS: amLODIPine BESYLATE 5 MG TAB PO SCH (08:45)
[2017-10-26] MEDS: MEGESTROL ACETATE 20 MG PO SCH (08:46)
[2017-10-26] MEDS ORDERED: CARISOPRODOL 350 MG TAB PO PRN (10:00)
[2017-10-26] MEDS: ENOXAPARIN SODIUM 40 MG/0.4 ML SYG SUBCU SCH (10:20)
[2017-10-26] MEDS ORDERED: SODIUM CHL 0.9% 50ML MIN-BAG+ 50 ML IVPB ONE (10:27)
[2017-10-26] MEDS ORDERED: cefTRIAXone SODIUM 1 GM VIAL ONE (10:28)
[2017-10-26] MEDS ORDERED: cefTRIAXone SODIUM 1 GM in SODIUM CHL 0.9% 50ML MIN-BAG+ 50 ML IVPB SCH (10:30)
[2017-10-26] MEDS: PANTOPRAZOLE SODIUM TAB 40 MG PO SCH (10:37)
[2017-10-26] MEDS: HYDROcodone 10MG/APAP 325MG 1 EA TAB PO PRN ×4 (10:41→22:19)
--- NOTE | 2017-10-26 11:01 | RAD ---
EXAM DESCRIPTION: Tibia/Fibula,Right CLINICAL HISTORY: right lower leg cellulitis COMPARISON: Right lower extremity venous duplex ultrasound. TECHNIQUE: AP, lateral, and oblique images right lower leg. ORIF of the right tibial medial malleolus. Overall bone density slightly decreased. Right total knee arthroplasty. Arthrosis in the proximal tibiofibular joint and small radiodense loose bodies abutting the tibial plateau. Minimal radiolucency in the bone around the nail screw in the medial malleolus. No acute fracture. IMPRESSION: Right total knee arthroplasty tibial component is unremarkable where visualized. Arthrosis proximal tibiofibular joint. Prior ORIF right medial malleolar. Question of loosening of the medial malleolar nail screw. No acute bone or joint margin abnormality. Electronically signed by: Eduardo Lima MD 10/26/2017 10:57 AM CDT
--- NOTE | 2017-10-26 11:53 | PN ---
SUPERVISING PHYSICIAN: René Roa MD DATE: 10/26/17 SUBJECTIVE: The patient is lying in bed. He complains of his right lower extremity hurting. We discussed at length his pain contract with his pain medication doctor as well as his IV pain medications here in the hospital. We agreed that he would try to alternate between the IV pain medications and his oral pain medications that are given by his pain doctor, which are hydrocodone 10/325 every 6 hours. We also discussed his Megace prescription and he did not know why he was taking Megace. I called his pharmacy and it has not been filled since 2017, so we discontinued that and he was okay with it. He also may need an extended IV catheter due to his IV antibiotics and he agreed to that. Otherwise, he denies any nausea, vomiting, constipation, diarrhea, chest pain or shortness of breath. OBJECTIVE: VITAL SIGNS: Temperature 97. Heart rate 96. Blood pressure 195/86. Respiratory rate 20. O2 saturation 92%. RESPIRATORY: Diminished breath sounds throughout, but mostly clear to auscultation. CARDIAC: Regular rate and rhythm. GASTROINTESTINAL: Abdomen is soft, nondistended, nontender. Bowel sounds are positive. EXTREMITIES: His right lower extremity continues to have some redness, but the edema is less than yesterday. There is no fluctuance or drainage noted. It is tender to palpation. The erythema runs from midcalf to the ankle area and it is circumferential. NEUROLOGIC: Awake, alert and oriented times three. LABORATORY: WBCs normal at 6.9, hemoglobin 12.5, hematocrit 37. He has a left shift on his differential. ESR 48. Blood sugars have run between 126 and 143. C-reactive protein is 1.9. Electrolytes are basically within normal limits with the exception that his calcium is slightly low at 8. Total bilirubin 1.1, alkaline phosphatase 127. Preliminary blood cultures show no growth after 24 hours. His lower extremity ultrasound shows no evidence of a DVT to the right lower extremity. His right lower leg x-ray shows arthrosis proximal to the tibiofibular joint and to the right medial malleolar. Question of loosening of the medial malleolar nail screw. No acute bone or joint margin abnormality. All other labs and films have been reviewed via the EMR. ASSESSMENT: 1. Sepsis due to right lower leg cellulitis with an admission temperature of 103.5 and heart rate of 110. 2. History of osteomyelitis of the left leg resulting in tkvmu-yhn-gqmy amputation in 2013. 3. Gout. 4. Osteoarthritis. 5. History of compression fracture of T12 and L2 in August of 2016. 6. Hypertension. PLAN: We will continue present supportive care. His blood pressure is slightly elevated and we will monitor as his blood pressure medications may need to be adjusted. I have added Rocephin to his antibiotic coverage and we will try to get an extended dwelling IV catheter for his IV antibiotics. I will do lab including an ESR and CRP in the morning. I have also added an arterial Doppler to his right lower extremity. I have changed his IV pain medications to every 3 hours instead of every 2 hours and he will try to transition to oral pain medications. His leg is elevated, but we will continue to monitor it closely and follow as needed. Dr. Roa is the collaborating physician and available for consultation. #[id number] [facility]
--- NOTE | 2017-10-26 13:02 | US ---
EXAM DESCRIPTION: Extremity,Lower RT Arteries: Ultrasound. CLINICAL HISTORY: right lower leg cellulitis COMPARISON: None. TECHNIQUE: Doppler evaluation of the right lower extremity arterial flow waveforms and velocities. FINDINGS: Arterial waveforms in the right lower extremity are monophasic from the right common femoral artery to the right posterior tibial artery. Intermittently triphasic or monophasic in the right dorsalis pedis artery. Comments: Velocities are unremarkable. IMPRESSION: Monophasic arterial waveforms in the right lower extremity and intermittently monophasic and triphasic in the right dorsalis pedis artery of the proximal foot. Velocities are slightly elevated. This may be due to hypertension. Significant atherosclerotic occlusive disease is less likely. Recommend comparison with left lower extremity arterial Doppler evaluation. Electronically signed by: Eduardo Lima MD 10/26/2017 1:01 PM CDT
[2017-10-26] MEDS ORDERED: SODIUM CHLORIDE 0.9% 500ML 500 ML ONE ×2 (16:46→19:28)
[2017-10-26] MEDS: VANCOMYCIN HCL INJ 2,000 MG in SODIUM CHLORIDE 0.9% 500ML 500 ML IVPB SCH (16:59)
[2017-10-26] MEDS: SIMVASTATIN 10 MG TAB PO SCH (21:04)
[2017-10-26] MEDS: ZOLPIDEM TARTRATE 10 MG TAB PO SCH (21:04)
[2017-10-26] MEDS: TAMSULOSIN 0.4 MG CAP PO SCH (21:04)
[2017-10-27] MEDS: fentaNYL CITRATE INJ 50 MCG/ML AMP IV PRN ×5 (04:12→22:22)
[2017-10-27] MEDS: VANCOMYCIN HCL INJ 2,000 MG in SODIUM CHLORIDE 0.9% 500ML 500 ML IVPB SCH ×2 (05:20→16:42)
[2017-10-27] MEDS: PANTOPRAZOLE SODIUM TAB 40 MG PO SCH (06:24)
[2017-10-27] MEDS: LEVOTHYROXINE SODIUM 0.025 MG TAB PO SCH (06:24)
[2017-10-27] MEDS ORDERED: SODIUM CHL 0.9% 50ML MIN-BAG+ 0 ML IVPB ONE (07:39)
[2017-10-27] MEDS ORDERED: cefTRIAXone SODIUM 1 GM VIAL ONE (07:40)
[2017-10-27] MEDS: INSULIN LISPRO 100 UNITS/ML PEN SUBCU SCH ×4 (08:33→21:13)
[2017-10-27] MEDS: FLUoxetine HCL 20 MG CAP PO SCH (09:02)
[2017-10-27] MEDS: POTASSIUM CHLORIDE 20 MEQ TAB PO SCH (09:02)
[2017-10-27] MEDS: ALLOPURINOL 300 MG TAB PO SCH (09:02)
[2017-10-27] MEDS: PREGABALIN 100 MG CAP PO SCH ×3 (09:03→21:12)
[2017-10-27] MEDS: amLODIPine BESYLATE 5 MG TAB PO SCH (09:03)
[2017-10-27] MEDS: HYDROcodone 10MG/APAP 325MG 1 EA TAB PO PRN ×3 (09:03→21:18)
[2017-10-27] MEDS: SODIUM CHLORIDE 0.9% (FLUSH) 10 ML SYG IV SCH ×2 (09:04→21:12)
[2017-10-27] MEDS: BACLOFEN 10 MG TAB PO SCH (09:04)
[2017-10-27] MEDS: ASPIRIN (ENTERIC COATED) 81 MG TAB PO SCH (09:04)
[2017-10-27] MEDS ORDERED: SODIUM CHL 0.9% 50ML MIN-BAG+ 50 ML IVPB ONE ×2 (09:08→19:29)
[2017-10-27] MEDS ORDERED: CEFEPIME 2 GM VIAL ONE ×2 (09:08→19:29)
[2017-10-27] MEDS: CEFEPIME 2 GM in SODIUM CHL 0.9% 50ML MIN-BAG+ 50 ML IVPB SCH ×2 (09:16→21:12)
[2017-10-27] MEDS: ENOXAPARIN SODIUM 40 MG/0.4 ML SYG SUBCU SCH (10:44)
--- NOTE | 2017-10-27 11:57 | PN ---
SUPERVISING PHYSICIAN: René Roa MD DATE: 10/27/17 SUBJECTIVE: The patient is lying in bed. He continues complaints of his right lower leg hurting but no chest pain, nausea, vomiting, diarrhea. I explained that I talked to Infectious Disease Dr. North in [place] and we were changing some of his antibiotic therapy up as well as adding an MRI. He agreed with that. He also said he did sleep last night for the first time in several days but he continued to have pain in that right lower leg, although the pain medicine does help some. OBJECTIVE: VITAL SIGNS: He is afebrile. Heart rate 87. Blood pressure 144/89. Respiratory rate 20. O2 saturation 92% on room air. RESPIRATORY: Diminished breath sounds throughout but mostly clear to auscultation. CARDIAC: Regular rate and rhythm. GASTROINTESTINAL: Abdomen is soft, nondistended, nontender. Bowel sounds are positive. EXTREMITIES: His right lower leg is erythematous, not significantly changed from yesterday. The skin is tight. It is tender to palpation. Pedal pulse is +1. There is no fluctuance or drainage noted. NEUROLOGIC: Awake, alert and oriented times three. LABORATORY: WBCs are 6,000 with left shift on differential. Hemoglobin 12.6, hematocrit 37.9, stable. ESR 80. Blood sugars have run between 114 and 170. Electrolytes are basically within normal limits with the exception that his calcium is 8.3. C-reactive protein is 15.8. Preliminary blood cultures show no growth after 48 hours. His right lower extremity artery ultrasound shows monophasic arterial wave forms in the right lower extremity and intermittent monophasic and triphasic in the right dorsalis pedis artery of the proximal foot. Velocities are slightly elevated which may be due to hypertension, significant atherosclerotic occlusive disease is less likely. Fibula x-ray shows right total knee arthroplasty, tibial component is unremarkable where visualized. Arthrosis proximal tibiofibular joint. Prior open reduction and internal fixation right medial malleolare, questionable loosening of the medial malleolar nail screw. No acute bone or joint margin abnormality. All other labs and films have been reviewed via the EMR. IMPRESSION: 1. Sepsis due to right lower leg cellulitis with an admission temperature of 103.5 and heart rate of 110. 2. History of osteomyelitis of the left leg resulting in vlmdm-brh-gctt amputation in 2013. 3. Gout. 4. Osteoarthritis. 5. History of compression fracture of T12 and L2 in August of 2016. 6. Hypertension. PLAN: We will continue present supportive care. I spoke with Dr. North at length about the patient's status and she recommended we get an MRI of his right lower leg as well as discontinuing his ceftriaxone and starting him on cefepime. I have ordered an MRI of the right lower leg as well as discontinued the Rocephin and started the cefepime. She also recommended we continue the vancomycin and he would probably need an extended IV antibiotics therapy. I will also order physical therapy. Although the patient does get up and gets in his wheelchair, we need to make sure he is moving to prevent other problems. Dr. North also recommended that ESR and CRP be drawn early next week. I will hold off on ordering any labs at this time. We will order some for tomorrow. We will monitor his cultures and followup as needed. Dr. Roa is the collaborating physician and available for consultation. #[id number] [facility]
[2017-10-27] MEDS ORDERED: VANCOMYCIN HCL INJ 1,000 MG VIAL IVPB ONE ×2 (16:29→19:30)
[2017-10-27] MEDS ORDERED: SODIUM CHLORIDE 0.9% 500ML 500 ML ONE ×2 (16:29→19:29)
--- NOTE | 2017-10-27 16:42 | MRI ---
EXAM DESCRIPTION: MRI right lower leg CLINICAL HISTORY: Cellulitis. Pain, swelling and redness from the ankle to the mid calf COMPARISON: Plain radiograph 10/26/2017 TECHNIQUE: Multiplanar, multisequence MR images of the right lower leg FINDINGS: Diffuse subcutaneous soft tissue edema and swelling consistent with cellulitis. Fluid along the anterior compartment superficial fascia superiorly. No loculated fluid to diagnose abscess No intrinsic muscle edema. The muscles are atrophic and fatty infiltrated. There is no deep intermuscular fascial fluid Normal marrow signal in the tibia and fibula. No abnormality along the neurovascular structures IMPRESSION: Cellulitis. No soft tissue abscess No deep space infection/necrotizing fasciitis. No osteomyelitis Electronically signed by: René Hadley MD 10/27/2017 4:41 PM CDT
[2017-10-27] MEDS: SIMVASTATIN 10 MG TAB PO SCH (21:12)
[2017-10-27] MEDS: TAMSULOSIN 0.4 MG CAP PO SCH (21:12)
[2017-10-27] MEDS: ZOLPIDEM TARTRATE 10 MG TAB PO SCH (21:12)
[2017-10-28] MEDS: fentaNYL CITRATE INJ 50 MCG/ML AMP IV PRN ×2 (02:21→09:00)
[2017-10-28] MEDS: VANCOMYCIN HCL INJ 2,000 MG in SODIUM CHLORIDE 0.9% 500ML 500 ML IVPB SCH ×2 (05:22→17:42)
[2017-10-28] MEDS: PANTOPRAZOLE SODIUM TAB 40 MG PO SCH (06:02)
[2017-10-28] MEDS: LEVOTHYROXINE SODIUM 0.025 MG TAB PO SCH (06:02)
[2017-10-28] MEDS: HYDROcodone 10MG/APAP 325MG 1 EA TAB PO PRN ×2 (06:06→13:22)
[2017-10-28] MEDS: INSULIN LISPRO 100 UNITS/ML PEN SUBCU SCH ×4 (07:28→21:00)
[2017-10-28] MEDS ORDERED: SODIUM CHL 0.9% 50ML MIN-BAG+ 50 ML IVPB ONE ×2 (08:31→20:13)
[2017-10-28] MEDS ORDERED: CEFEPIME 2 GM VIAL ONE ×2 (08:32→20:13)
[2017-10-28] MEDS: CEFEPIME 2 GM in SODIUM CHL 0.9% 50ML MIN-BAG+ 50 ML IVPB SCH ×2 (08:54→20:48)
[2017-10-28] MEDS: BACLOFEN 10 MG TAB PO SCH (08:54)
[2017-10-28] MEDS: PREGABALIN 100 MG CAP PO SCH ×3 (08:54→20:46)
[2017-10-28] MEDS: amLODIPine BESYLATE 5 MG TAB PO SCH (08:55)
[2017-10-28] MEDS: FLUoxetine HCL 20 MG CAP PO SCH (08:55)
[2017-10-28] MEDS: POTASSIUM CHLORIDE 20 MEQ TAB PO SCH (08:55)
[2017-10-28] MEDS: ASPIRIN (ENTERIC COATED) 81 MG TAB PO SCH (08:55)
[2017-10-28] MEDS: SODIUM CHLORIDE 0.9% (FLUSH) 10 ML SYG IV SCH ×2 (08:56→20:47)
[2017-10-28] MEDS: ALLOPURINOL 300 MG TAB PO SCH (08:59)
[2017-10-28] MEDS: IV SET AND CAP CHANGE INJ INJ SCH (11:13)
[2017-10-28] MEDS: ENOXAPARIN SODIUM 40 MG/0.4 ML SYG SUBCU SCH (11:13)
--- NOTE | 2017-10-28 13:00 | PN ---
DATE: 10/28/17 SUPERVISING PHYSICIAN: René Roa M.D. SUBJECTIVE: The patient is sitting up in his bed. He is eating his lunch. Has no complaints of nausea, vomiting, diarrhea or constipation, but he continues to have complaints of his leg hurting, although it has improved. He felt the Fentanyl was not working and he said that Dilaudid seems to work on him better, so we will change his Fentanyl to Dilaudid. He received his midline IV catheter yesterday and we discussed exterminator termite IV antibiotic therapy and that we would call the Infectious Diseases doctor on Monday to guide our therapy. OBJECTIVE: VITAL SIGNS: He is afebrile, heart rate 85, blood pressure 148/78, respiratory rate 20, O2 sat 93% on room air. RESPIRATORY: Diminished breath sounds throughout, but essentially clear to auscultation. CARDIAC: Regular rate and rhythm. GASTROINTESTINAL: He is obese. It is nondistended, non- tender. Bowel sounds are positive. EXTREMITIES: He has a left atxcx-hsg-reen amputation. His right lower leg continues to be erythematous and slightly edematous, but it has improved since yesterday. There is some warmth to the area, but again that has improved as well. It continues to be tender to palpation but again that is improved. NEUROLOGIC: He is awake, alert and oriented times three. LABORATORY: Blood sugars have run between 94 and 181. Preliminary blood cultures show no growth after 3 days. His lower extremity MRI as recommended by Infectious Disease, Dr. North in [place], shows cellulitis. No soft tissue abscess. No deep space infection/necrotizing fasciitis. No osteomyelitis. All other labs and films have been reviewed via the EMR. ASSESSMENT: 1. Sepsis due to right lower leg cellulitis with an admission temperature of 103.5 and heart rate of 110. 2. History of osteomyelitis of the left leg resulting in mkmrv-mtc-whyf amputation in 2013. 3. Gout. 4. Osteoarthritis. 5. History of compression fracture of T12 and L2 in August of 2016. 6. Hypertension. PLAN: We will continue present supportive care. We will contact Dr. North on Monday to guide our antibiotic therapy after discharge. He is presently on Cefepime and vancomycin. I have changed his Fentanyl to Dilaudid. He was getting 50 mcg of Fentanyl every 4 hours and now he is getting 1 to 2 mg of Dilaudid every 4 hours p.r.n. for pain in addition to his routine pain medications. I will hold off on labs tomorrow and will do lab on Monday that includes a CRP and an ESR. I have also ordered physical therapy. We will continue to monitor him closely and follow as needed. Dr. Roa is the collaborating physician available for consultation. #[id number] [facility]
[2017-10-28] MEDS: HYDROmorphone HCL INJ 2 MG/ML VIAL IV PRN ×2 (13:57→19:36)
[2017-10-28] MEDS: ZOLPIDEM TARTRATE 10 MG TAB PO SCH (20:46)
[2017-10-28] MEDS: TAMSULOSIN 0.4 MG CAP PO SCH (20:46)
[2017-10-28] MEDS: SIMVASTATIN 10 MG TAB PO SCH (20:46)
[2017-10-29] MEDS: HYDROmorphone HCL INJ 2 MG/ML VIAL IV PRN ×6 (00:05→22:02)
[2017-10-29] MEDS ORDERED: VANCOMYCIN HCL INJ 500 MG VIAL ONE (05:04)
[2017-10-29] MEDS ORDERED: SODIUM CHLORIDE 0.9% 500ML 500 ML ONE ×2 (05:04→14:46)
[2017-10-29] MEDS ORDERED: VANCOMYCIN HCL INJ 1,000 MG VIAL IVPB ONE ×2 (05:05→14:47)
[2017-10-29] MEDS: SODIUM CHLORIDE 0.9% (FLUSH) 10 ML SYG IV PRN ×2 (05:30→22:03)
[2017-10-29] MEDS: VANCOMYCIN HCL IVPB SCH ×2 (05:30→16:39)
[2017-10-29] MEDS: SODIUM CHLORIDE 0.9% IVPB SCH ×2 (05:30→16:39)
[2017-10-29] MEDS: LEVOTHYROXINE SODIUM 0.025 MG TAB PO SCH (06:32)
[2017-10-29] MEDS: PANTOPRAZOLE SODIUM TAB 40 MG PO SCH (06:33)
[2017-10-29] MEDS ORDERED: SODIUM CHL 0.9% 50ML MIN-BAG+ 50 ML IVPB ONE ×2 (08:09→20:06)
[2017-10-29] MEDS ORDERED: CEFEPIME 2 GM VIAL ONE ×2 (08:10→20:06)
[2017-10-29] MEDS: INSULIN LISPRO 100 UNITS/ML PEN SUBCU SCH ×4 (08:21→21:15)
[2017-10-29] MEDS: PREGABALIN 100 MG CAP PO SCH ×3 (08:49→20:31)
[2017-10-29] MEDS: HYDROcodone 10MG/APAP 325MG 1 EA TAB PO PRN (08:49)
[2017-10-29] MEDS: FLUoxetine HCL 20 MG CAP PO SCH (08:49)
[2017-10-29] MEDS: BACLOFEN 10 MG TAB PO SCH (08:50)
[2017-10-29] MEDS: ASPIRIN (ENTERIC COATED) 81 MG TAB PO SCH (08:50)
[2017-10-29] MEDS: POTASSIUM CHLORIDE 20 MEQ TAB PO SCH (08:50)
[2017-10-29] MEDS: amLODIPine BESYLATE 5 MG TAB PO SCH (08:50)
[2017-10-29] MEDS: CEFEPIME 2 GM in SODIUM CHL 0.9% 50ML MIN-BAG+ 50 ML IVPB SCH ×2 (08:50→20:30)
[2017-10-29] MEDS: SODIUM CHLORIDE 0.9% (FLUSH) 10 ML SYG IV SCH ×2 (08:51→20:31)
[2017-10-29] MEDS: ALLOPURINOL 300 MG TAB PO SCH (08:51)
[2017-10-29] MEDS: ENOXAPARIN SODIUM 40 MG/0.4 ML SYG SUBCU SCH (11:02)
--- NOTE | 2017-10-29 14:15 | PN ---
DATE: 10/29/17 SUPERVISING PHYSICIAN: René Roa M.D. SUBJECTIVE: The patient is lying in bed. He is watching television. He said the Dilaudid is working much better to improve his right lower leg pain. He denies shortness of breath, nausea, vomiting, diarrhea, constipation. His leg does feel less tight than it has in the last few days. OBJECTIVE: VITAL SIGNS: He is afebrile, heart rate 87, blood pressure 160/76, respiratory rate 20, O2 sat 93% on room air. RESPIRATORY: Diminished breath sounds throughout, but mostly clear to auscultation. CARDIAC: Regular rate and rhythm. GASTROINTESTINAL: He is obese. Abdomen is soft, nondistended. Bowel sounds are positive. EXTREMITIES: He has a left kbgtm-nvo-bmnx amputation. His right lower leg continues to be erythematous and somewhat tight with generalized warmth to the entire right lower leg to the ankle. It has improved since yesterday. The redness, especially at the distal portion of it is improved. He is mildly tender to palpation. NEUROLOGIC: He is awake, alert and oriented times three. LABORATORY: There are no labs or films to report at this time.. ASSESSMENT: 1. Sepsis due to right lower leg cellulitis with an admission temperature of 103.5 and heart rate of 110. 2. History of osteomyelitis of the left leg resulting in xifvt-yye-aken amputation in 2013. 3. Gout. 4. Osteoarthritis. 5. History of compression fracture of T12 and L2 in August of 2016. 6. Hypertension. PLAN: We will continue present supportive care. Dr. North is aware of this patient and I spoke with her last week. She can be contacted tomorrow to guide our antibiotic therapy both now and after discharge. He is presently on Cefepime at her recommendations as well as vancomycin. We will continue with his Dilaudid as well as his home pain medications for his lower leg pain. We will need to wean him off of the Dilaudid. I will do labs tomorrow including an ESR and CRP and that can be reported to Dr. North. Physical therapy was ordered yesterday, we will continue with that. He is encouraged to keep his leg elevated, although the nurses report that he quite frequently kicks the pillows off the bed. I have also encouraged good pulmonary hygiene and we will continue to monitor him closely and follow as needed. Dr. Roa is the collaborating physician available for consultation. #[id number] [facility]
[2017-10-29] MEDS: SIMVASTATIN 10 MG TAB PO SCH (20:32)
[2017-10-29] MEDS: TAMSULOSIN 0.4 MG CAP PO SCH (20:33)
[2017-10-29] MEDS: ZOLPIDEM TARTRATE 10 MG TAB PO SCH (22:01)
[2017-10-30] MEDS: SODIUM CHLORIDE 0.9% (FLUSH) 10 ML SYG IV PRN (02:55)
[2017-10-30] MEDS: HYDROmorphone HCL INJ 2 MG/ML VIAL IV PRN ×5 (02:56→21:05)
[2017-10-30] MEDS ORDERED: SODIUM CHLORIDE 0.9% 500ML 500 ML ONE ×3 (05:22→22:25)
[2017-10-30] MEDS ORDERED: VANCOMYCIN HCL INJ 1,000 MG VIAL IVPB ONE ×3 (05:22→22:27)
[2017-10-30] MEDS: SODIUM CHLORIDE 0.9% IVPB SCH ×2 (05:28→17:42)
[2017-10-30] MEDS: VANCOMYCIN HCL IVPB SCH ×2 (05:28→17:42)
[2017-10-30] MEDS: PANTOPRAZOLE SODIUM TAB 40 MG PO SCH (06:32)
[2017-10-30] MEDS: LEVOTHYROXINE SODIUM 0.025 MG TAB PO SCH (06:32)
[2017-10-30] MEDS: INSULIN LISPRO 100 UNITS/ML PEN SUBCU SCH ×4 (07:17→21:30)
[2017-10-30] MEDS ORDERED: SODIUM CHL 0.9% 50ML MIN-BAG+ 50 ML IVPB ONE ×2 (08:14→19:47)
[2017-10-30] MEDS ORDERED: CEFEPIME 2 GM VIAL ONE ×2 (08:16→19:47)
[2017-10-30] MEDS: FLUoxetine HCL 20 MG CAP PO SCH (08:30)
[2017-10-30] MEDS: ALLOPURINOL 300 MG TAB PO SCH (08:30)
[2017-10-30] MEDS: ASPIRIN (ENTERIC COATED) 81 MG TAB PO SCH (08:30)
[2017-10-30] MEDS: POTASSIUM CHLORIDE 20 MEQ TAB PO SCH (08:31)
[2017-10-30] MEDS: PREGABALIN 100 MG CAP PO SCH ×3 (08:31→21:01)
[2017-10-30] MEDS: CEFEPIME 2 GM in SODIUM CHL 0.9% 50ML MIN-BAG+ 50 ML IVPB SCH ×2 (08:31→20:57)
[2017-10-30] MEDS: amLODIPine BESYLATE 5 MG TAB PO SCH (08:31)
[2017-10-30] MEDS: BACLOFEN 10 MG TAB PO SCH (08:31)
[2017-10-30] MEDS: SODIUM CHLORIDE 0.9% (FLUSH) 10 ML SYG IV SCH ×2 (08:32→20:53)
[2017-10-30] MEDS: ENOXAPARIN SODIUM 40 MG/0.4 ML SYG SUBCU SCH (11:14)
--- NOTE | 2017-10-30 19:05 | PN ---
DATE: 10/30/17 SUPERVISING PHYSICIAN: Hipolito Snider M.D. SUBJECTIVE: The patient continues to report that he has ongoing pain in his right lower extremity and that the Dilaudid is working okay at times. He has had no complaints of nausea, vomiting, diarrhea or constipation. OBJECTIVE: VITAL SIGNS: He remains afebrile with T max temperature of 98.4, pulse 86, blood pressure 131/74, respirations 20, satting 92% on room air. I's and O's show a negative balance of 168 with 2132 in, 2300 out. Weight is 155.1 kg. GENERAL: The patient is resting in bed comfortably. Appears to be in no acute distress. CHEST: Lung sounds were clear to auscultation bilaterally, just slightly diminished towards the bases. CARDIAC: Heart was regular rate and rhythm. ABDOMEN: Obese, soft, non-tender with positive bowel sounds. EXTREMITIES: Noted left [id number] amputation with no obvious signs of complications. Right lower extremity shows some erythema and ongoing edema that extends from the foot up to just below the tibial plateau with no obvious areas of fluctuation or drainage. The limb is tender on palpation. Distally pulses were 1+ bilaterally. Capillary refill was brisk. NEUROLOGIC: He is alert and oriented times three. LABORATORY: CBC this morning shows white count 4,000 with hemoglobin 12, hematocrit 36.7 which looks to be stable. RBC indices indicate a macrocytic/ hyperchromic presentation with thrombocytopenia with a platelet count of 83,000 which is significantly up from previous 2 days. Differential continues to show a left shift. Sed rate is down to 48 from 80 on the 14th. Chemistries show normal electrolytes with potassium 4.6. Blood sugars have ranged between 73 and 213, calcium 8.5. Liver functions all show to be within normal limits with alkaline phosphatase showing an elevation at 144. C reactive protein is 3.8 which is significantly decreased from the 14th which was 15.8. MICROBIOLOGY: Blood cultures remain negative after 5 days. RADIOLOGY: There are no additional radiographic studies. ASSESSMENT: 1. Sepsis secondary to right lower leg cellulitis showing slow clinical improvement on Cefepime and vancomycin. 2. Thrombocytopenia, uncertain etiology, more likely chronic but could be secondary to either Heparin induced thrombocytopenia which is less likely and more attributable to terminal gauger therapy with Cefepime, but showing improvement with no other signs of thrombosis. 3. History of gout with no signs of acute exacerbation. 4. Chronic osteoarthritis. 5. History of compression fracture of T12 and L2 in the last year, August of 2016. 6. Hypertension, stable. PLAN: I did discuss the patient's laboratory studies this morning with Dr. North. Will continue with current plan at this point with Cefepime with close monitoring of his platelet count. The nurses have been holding his Levaquin for the last 2 days. Will resume that tomorrow morning if his platelet count continues to show improvement as there is more of a concern for a venous thrombus versus worsening thrombocytopenia. He does continue to need Dilaudid fairly scheduled, in fact he is requesting it exactly when it is due the next time he can get it. Will need to work to wean him off Dilaudid. He does have pain management in place with a pain group in [place]. I explained to him that this makes it difficult to modify his pain regimen other than send him home on [place]. He does continue to have ongoing pain, but is showing improvement. Will hopefully be able to discharge in the next 2 to 3 days. Anticipation of discharging arrangements will need to be made for ongoing antibiotic therapy with vancomycin and close followup with Dr. North. Apparently in the past he has had home infusions of vancomycin. Nichol is currently following through with this to see if there are any arrangements that can be made with home health. Again, will hopefully be able to discharge either tomorrow or the next. Until then continue to monitor and treat appropriately. #[id number] [facility]
[2017-10-30] MEDS: TAMSULOSIN 0.4 MG CAP PO SCH (21:01)
[2017-10-30] MEDS: SIMVASTATIN 10 MG TAB PO SCH (21:01)
[2017-10-30] MEDS: ZOLPIDEM TARTRATE 10 MG TAB PO SCH (21:01)
[2017-10-30] MEDS ORDERED: VANCOMYCIN HCL INJ 500 MG VIAL ONE (22:27)
[2017-10-31] MEDS: HYDROmorphone HCL INJ 2 MG/ML VIAL IV PRN ×2 (04:00→08:49)
[2017-10-31] MEDS: SODIUM CHLORIDE 0.9% IVPB SCH (05:12)
[2017-10-31] MEDS: VANCOMYCIN HCL IVPB SCH (05:12)
[2017-10-31] MEDS: SODIUM CHLORIDE 0.9% (FLUSH) 10 ML SYG IV PRN (05:15)
[2017-10-31] MEDS: LEVOTHYROXINE SODIUM 0.025 MG TAB PO SCH (06:38)
[2017-10-31] MEDS: PANTOPRAZOLE SODIUM TAB 40 MG PO SCH (06:38)
[2017-10-31] MEDS: INSULIN LISPRO 100 UNITS/ML PEN SUBCU SCH ×2 (07:17→13:04)
[2017-10-31] MEDS ORDERED: SODIUM CHL 0.9% 50ML MIN-BAG+ 50 ML IVPB ONE (07:39)
[2017-10-31] MEDS ORDERED: CEFEPIME 2 GM VIAL ONE (07:40)
[2017-10-31] MEDS: POTASSIUM CHLORIDE 20 MEQ TAB PO SCH (08:44)
[2017-10-31] MEDS: PREGABALIN 100 MG CAP PO SCH (08:44)
[2017-10-31] MEDS: ALLOPURINOL 300 MG TAB PO SCH (08:44)
[2017-10-31] MEDS: ASPIRIN (ENTERIC COATED) 81 MG TAB PO SCH (08:45)
[2017-10-31] MEDS: CEFEPIME 2 GM in SODIUM CHL 0.9% 50ML MIN-BAG+ 50 ML IVPB SCH (08:45)
[2017-10-31] MEDS: BACLOFEN 10 MG TAB PO SCH (08:45)
[2017-10-31] MEDS: SODIUM CHLORIDE 0.9% (FLUSH) 10 ML SYG IV SCH (08:47)
[2017-10-31] MEDS: amLODIPine BESYLATE 5 MG TAB PO SCH (08:47)
[2017-10-31] MEDS: FLUoxetine HCL 20 MG CAP PO SCH (08:47)
[2017-10-31] MEDS ORDERED: PREGABALIN 100 MG CAP PO SCH ×2 (09:30→15:00)
[2017-10-31] MEDS: HYDROcodone 10MG/APAP 325MG 1 EA TAB PO SCH ×2 (10:21→13:13)
[2017-10-31] MEDS: IV SET AND CAP CHANGE INJ INJ SCH (11:29)
[2017-10-31] MEDS: ENOXAPARIN SODIUM 40 MG/0.4 ML SYG SUBCU SCH (11:30)
[2017-10-31 12:52] VITALS: O2SAT 94
[2017-10-31] MEDS ORDERED: INFLUENZA VIRUS VACC (ADULT) 0.5 ML SYG IM ONE (13:22)
[2017-10-31] MEDS ORDERED: PNEUMOCOCCAL VACCINE 0.5 ML INJ IM ONE (13:23)
[2017-10-31 15:01] VITALS: BP 158/70; TEMP 97.8
[2017-10-31] MEDS ORDERED: VANCOMYCIN HCL INJ 1,500 MG in SODIUM CHLORIDE 0.9% 250ML 250 ML IVPB SCH (17:00)
--- NOTE | 2017-11-06 10:58 | DS ---
SUPERVISING PHYSICIAN: Kofi Snider MD ADMISSION DIAGNOSIS: 1. Sepsis due to right lower leg cellulitis with an admission temperature of 103.5 and heart rate of 110. 2. History of osteomyelitis of the left leg resulting in [id number] amputation in 2013. 3. History of gout. 4. History of osteoarthritis. 5. History of compression fracture of T12 and L2 in August of 2016. 6. Hypertension. DISCHARGE DIAGNOSIS: 1. Sepsis secondary to right lower leg cellulitis without any clinical signs of osteomyelitis and negative deep venous thrombosis studies, showing slow clinical improvement on cefepime and vancomycin, able to transition to outpatient management. 2. Thrombocytopenia, uncertain etiology, more likely chronic but stable with remote concern for a Heparin induced thrombocytopenia, more likely due to jail therapy with cefepime, stable with no signs of thrombosis. 3. History of gout with no signs of acute exacerbation. 4. Chronic osteoarthritis. 5. History of compression fracture of T12 and L2 in the last year, August of 2016. 6. Hypertension, stable. REASON FOR HOSPITALIZATION: Mr. Mora is a 62-year-old male patient who presented with complaint of right lower leg redness with pain that started the night prior to his admission. He felt like the pain in his lower leg had been going on for about a month, but it worsened to the point that he had to come to the Emergency Room plus he had a fever of over 103. In the Emergency Room, his vital signs were basically within normal limits with the exception of his temperature of 103.6 and his heart of 110. His lactic acid was normal at 2.1. In the Emergency Room, blood cultures were drawn. His right lower leg was tender to touch with some chronic lower leg ischemic changes, but his lower leg was edematous, warm to touch and erythematous. There was no noted drainage or fluctuance. He was given vancomycin as well as some fentanyl for pain and Tylenol for fever. The patient was admitted to the hospital for right lower leg cellulitis, to rule out deep venous thrombosis and osteomyelitis. LABORATORY: CBC on admission showed a white count of 6,900. At discharge, it was 4,000. Hemoglobin and hematocrit were stable and at discharge were 12 and 36.7 respectively with a platelet count of 82,000, but his admitting platelet count was 58,000. Differential showed a left shift. Chemistries showed normal electrolytes. BUN 12, creatinine 0.76, glucose 175, lactic acid 2.1. Hemoglobin A1c 5.7, magnesium low at 1.6. AST slightly elevated at 74, ALT 30, alkaline phosphatase 117. C-reactive protein was 1.9. At discharge, he had normal electrolytes and was stable. Magnesium was replaced and had gone up to 2.0. Blood sugars remained stable between 94 and 213. Urinalysis shows a trace of lysed blood, otherwise within normal limits. He had 3 vancomycin troughs, first was 15, last on 10/30/17 prior to discharge at 15.8. RADIOLOGY: On admission, he had a chest x-ray and per radiologic interpretation showed no acute disease. He then a tib-fib x-ray on the right and per radiologic interpretation left total knee arthroplasty with tibial component is unremarkable, arthrosis proximal to the fibular joint with ORIF of the right medial malleolus. There was question of possible loosening of the medial malleolar nail screw. No acute bone or joint margin abnormalities. He did have a right lower leg MRI and per radiologic interpretation cellulitis was noted, no soft tissue abscess, no deep space infection/necrotizing fasciitis. No osteomyelitis. He also had a right lower extremity ultrasound and per radiologic interpretation there was note of monophasic arterial waveforms in the right lower extremity and intermittently monophasic and triphasic in the right dorsalis pedis artery of the proximal foot. Velocities were slightly elevated. This could be due to hypertension. Significant atherosclerotic occlusive disease is less likely. Recommended comparison with left lower extremity arterial Doppler. HOSPITAL COURSE: Mr. Mora was admitted on 10/25/17 and initiated on treatment for cellulitis of the right leg with vancomycin and Ceftin with concerns for sepsis. He had a lot of pain that was difficult to control. Ultimately, he had to utilize Dilaudid. On the morning of discharge, he felt his pain had been well controlled and he was able to transition to p.o. medication. Therefore, it was discussed that he had clinically improved to a point where he could continue with outpatient management. He remained afebrile for over 48 hours prior to discharge. His blood cultures remained negative and his vital signs had stabilized. He was transitioned to outpatient management for continued antibiotic therapy. DISCHARGE ASSESSMENT: VITAL SIGNS: Temperature 97.8. Pulse 84. Blood pressure 158/70. Respirations 18. Saturation 95% on room air. GENERAL: The patient is in no acute distress, resting comfortably. He is alert. CHEST: Lungs clear to auscultation bilaterally. HEART: Regular rate and rhythm. ABDOMEN: Obese, but soft, nontender. Positive bowel sounds. EXTREMITIES: Left hhglh-[id number]-mauy amputation with no obvious signs of complication. Right lower extremity shows edema, but improved since admission to trace edema that extends from the foot to just below the tibial plateau, but showing improvement since previous admission with no obvious areas of fluctuation or drainage. The limb remains tender to palpation. Distal pulses were 1+ bilaterally with capillary refill brisk. NEUROLOGIC: He is alert and oriented times 3. PLAN: Mr. Mora was discharged on 10/31/17 with instructions to have close clinical followup with Dr. Echols in the next week. He was to continue antibiotic therapy outpatient services twice daily for an additional 8 days. He was told to keep his leg elevated at all times. He was told should he have any concerning symptoms to call Dr. Echols or return to the hospital. MEDICATIONS AT DISCHARGE: All medications were resumed as previous. He was to have outpatient infusions of vancomycin for an additional 8 days at 1000 mg q.12h. per pharmacy protocol. Wound management was to keep the wound clean and dry with dressing. May shower , but no tub bath. Diet at discharge was regular diet as tolerated. Activity to utilize motor chair for ambulation for mobility and keep the right leg elevated. Condition at discharge was stable and improving. #[id number] [facility]
== END 2017-10-31 14:40 | disposition home health service (06) | DRG 872 ==
LOC: ER 03:11 → OBSVTOIN 06:56 → MS 06:56
PROVIDERS: ADMIT Nurse Practitioner Acute Care; ATTEND Nurse Practitioner Family
DX: A41.9 Sepsis, unspecified organism (principal); L03.115 Cellulitis of right lower limb; Z68.42 Body mass index [BMI] 45.0-49.9, adult; M10.9 Gout, unspecified; I10 Essential (primary) hypertension; M19.90 Unspecified osteoarthritis, unspecified site; D69.59 Other secondary thrombocytopenia; T36.1X5A Adverse effect of cephalosporins and other beta-lactam antibiotics, initial encounter; Y92.9 Unspecified place or not applicable; E03.9 Hypothyroidism, unspecified; F41.0 Panic disorder [episodic paroxysmal anxiety]; D50.9 Iron deficiency anemia, unspecified; E66.01 Morbid (severe) obesity due to excess calories; Z89.612 Acquired absence of left leg above knee; Z85.46 Personal history of malignant neoplasm of prostate; Z98.84 Bariatric surgery status; Z96.651 Presence of right artificial knee joint; Z88.5 Allergy status to narcotic agent; Z88.8 Allergy status to other drugs, medicaments and biological substances; Z79.82 Long term (current) use of aspirin; Z79.899 Other long term (current) drug therapy

== ENCOUNTER → 2017-12-18 | Outpatient (CLI) | payer OTHER | LOC: BFHH 11:32 | DX: L03.90 Cellulitis, unspecified (principal) ==

== ENCOUNTER → 2017-12-25 | Outpatient (CLI) | payer OTHER | LOC: BFHH 12:00 | DX: T87.44 Infection of amputation stump, left lower extremity (principal); L02.416 Cutaneous abscess of left lower limb ==

== ENCOUNTER 2017-12-26 15:13 | Emergency (ER) | payer OTHER ==
[2017-12-26 15:34] VITALS: BP 129/67; TEMP 97.4; O2SAT 97
--- NOTE | 2017-12-26 16:04 | RAD ---
EXAM DESCRIPTION: Chest,1 View CLINICAL HISTORY: VERIFY PICC PLACEMENT COMPARISON: October 25, 2017 IMPRESSION: Single AP portable upright view of the chest shows enlargement of the cardiac silhouette without pulmonary vascular congestion. There has been interval placement of a left-sided PICC line. Tip is identified in the expected location of the mid superior vena cava just beyond the level of the innominate vein. Hyperdensity seen in the lower thoracic spine probably represent vertebral augmentation of the thoracic vertebra. Lungs are normally aerated and clear. No obvious pleural effusion or pneumothorax is seen. Electronically signed by: Kris Arana MD 12/26/2017 4:03 PM [facility]
--- NOTE | 2017-12-26 16:28 | ED.PDOC ---
History of Present Illness - General Chief Complaint: General Stated Complaint: picc line problem Time Seen by Provider: 12/26/17 15:47 Source: patient Exam Limitations: no limitations - History of Present Illness Initial Comments: PT PRESENTS TO THE ED AFTER BEING SENT FOR LUE DISCOMFORT FOR THE PAST FEW DAYS WHEN PICC LINE IS FLUSHED WITH SALINE. PT STATES HE HAS HAD PICC FOR THE PAST 3 WEEKS FOR ABX TREATMENT FOR L STUMP CELLULITIS. PT STATES THAT HE BEGAN HAVING DISCOMFORT WITH FLUSHES FOR THE PAST 2-3 DAYS. PT DENIES DISCOMFORT WHILE RECEIVING IV INFUSIONS. PT DENIES CHEST PAIN, SOB, FEVER OR CHILLS. Timing/Duration: intermittent Severity: moderate Improving Factors: nothing Worsening Factors: other - FLUSHES THROUGH PICC LINE Allergies/Adverse Reactions: Allergies Morphine Allergy (Verified 10/25/17 08:00) Home Medications: Ambulatory Orders Allopurinol [Zyloprim] 300 mg PO DAILY 09/02/13 Amlodipine Besylate 5 mg PO DAILY 09/02/13 Cyanocobalamin [Vitamin B 12] 1,000 mcg PO DAILY 09/02/13 Multivitamin 2 tablet PO DAILY 09/02/13 Pregabalin [Lyrica] 200 mg PO TID 09/02/13 Zolpidem Tartrate [Ambien] 10 mg PO BEDTIME 09/02/13 Aspirin [Aspirin Adult Low Dose] 81 mg PO DAILY 08/15/16 Baclofen 10 mg PO DAILY 08/15/16 Carisoprodol 350 mg PO BEDTIME 08/15/16 Cholecalciferol [Vitamin D3] 5,000 unit PO DAILY 08/15/16 Ferrous Sulfate [Iron] 65 mg PO BEDTIME 08/15/16 Fluoxetine HCl [Prozac] 40 mg PO DAILY 08/15/16 Furosemide [Lasix] 80 mg PO DAILY PRN 08/15/16 Imipramine HCl 50 mg PO BEDTIME 08/15/16 Levothyroxine Sodium [Synthroid] 0.025 mg PO 0700 08/15/16 Lovastatin 20 mg PO BEDTIME 08/15/16 Potassium Chloride Microencaps [Potassium Chloride Cr] 40 meq PO DAILY 08/15/16 Tamsulosin [Flomax] 0.4 mg PO BEDTIME 08/15/16 Review of Systems - Review of Systems Constitutional: Denies: chills, fever EENTM: Denies: blurred vision, nose congestion Respiratory: Denies: cough, short of breath Cardiology: Denies: chest pain, palpitations Gastrointestinal/Abdominal: Denies: nausea, vomiting Musculoskeletal: Denies: joint pain, joint swelling, muscle pain Skin: Denies: change in color, lesions Neurological: Denies: headache, numbness, paresthesia Endocrine: States: no symptoms reported Hematologic/Lymphatic: States: no symptoms reported Past Medical History (General) - Patient Medical History Hx Seizures: No Hx Stroke: No Hx Dementia: No Hx Asthma: No Hx of COPD: No Hx Cardiac Disorders: Yes Hx Congestive Heart Failure: No Hx Pacemaker: No Hx Hypertension: Yes Hx Thyroid Disease: Yes Hx Diabetes: No Hx Gastroesophageal Reflux: Yes Hx Renal Disease: No Hx Cancer: Yes - Prostate Hx of HIV: No Hx Hepatitis C: No Hx MRSA: No MRSA Source:: Wound - Vaccination History Hx Tetanus, Diphtheria Vaccination: No Hx Influenza Vaccination: Yes Hx Pneumococcal Vaccination: Yes - Social History Hx Tobacco Use: Yes Hx Chewing Tobacco Use: No Hx Alcohol Use: No Hx Substance Use: No Hx Substance Use Treatment: No Hx Depression: No Hx Physical Abuse: No Hx Emotional Abuse: No Hx Suspected Abuse: No Family Medical History - Family History Mother Family History: No Known Hx Family Congestive Heart Failure: Yes - mom Hx Family;Other: dad-Liver cirrhosis Physical Exam - Physical Exam General Appearance: Alert, No apparent distress, Obese, Well Hydrated Ears, Nose, Throat: hearing grossly normal Neck: full range of motion, normal inspection Respiratory: chest non-tender, lungs clear, normal breath sounds, no respiratory distress, no accessory muscle use Cardiovascular/Chest: regular rate, rhythm, no murmur Peripheral Pulses: radial,right: 1+, radial,left: 1+ Gastrointestinal/Abdominal: non tender, soft Extremity: non-tender, normal inspection, other - NO SWELLING, TENDERNESS, OR REDNESS NOTED TO LUE. PICC LOCATED IN THE LEFT UPPER ARM Neurologic: alert, normal mood/affect, oriented x 3 Skin Exam: normal color, warm/dry Lymphatic: no adenopathy Progress - Progress Progress: 12/26/17 17:28 PT RESTING COMFORTABLY, CXR AND U/S FINDINGS DISCUSSED. - EKG/XRAY/CT XRAY: chest - PICC IN GOOD POSITION, NO ACUTE FINDINGS PER RAD Departure - Departure Clinical Impression: Pain in anterior left upper extremity, PICC (peripherally inserted central catheter) in place Time of Disposition: 17:29 Disposition: Discharge to Home or Self Care Condition: Good Departure Forms: ED Discharge - Pt. Copy, Patient Portal Self Enrollment Diet: resume usual diet Activity: no pushing/pulling with affected limb Referrals: Adrian Echols III, MD [Primary Care Provider] - 1-2 Weeks Home Medications: Ambulatory Orders Allopurinol [Zyloprim] 300 mg PO DAILY 09/02/13 Amlodipine Besylate 5 mg PO DAILY 09/02/13 Cyanocobalamin [Vitamin B 12] 1,000 mcg PO DAILY 09/02/13 Multivitamin 2 tablet PO DAILY 09/02/13 Pregabalin [Lyrica] 200 mg PO TID 09/02/13 Zolpidem Tartrate [Ambien] 10 mg PO BEDTIME 09/02/13 Aspirin [Aspirin Adult Low Dose] 81 mg PO DAILY 08/15/16 Baclofen 10 mg PO DAILY 08/15/16 Carisoprodol 350 mg PO BEDTIME 08/15/16 Cholecalciferol [Vitamin D3] 5,000 unit PO DAILY 08/15/16 Ferrous Sulfate [Iron] 65 mg PO BEDTIME 08/15/16 Fluoxetine HCl [Prozac] 40 mg PO DAILY 08/15/16 Furosemide [Lasix] 80 mg PO DAILY PRN 08/15/16 Imipramine HCl 50 mg PO BEDTIME 08/15/16 Levothyroxine Sodium [Synthroid] 0.025 mg PO 0700 08/15/16 Lovastatin 20 mg PO BEDTIME 08/15/16 Potassium Chloride Microencaps [Potassium Chloride Cr] 40 meq PO DAILY 08/15/16 Tamsulosin [Flomax] 0.4 mg PO BEDTIME 08/15/16
--- NOTE | 2017-12-26 17:12 | US ---
EXAM DESCRIPTION: Venous,Upper Extremity LT: ULTRASOUND. CLINICAL HISTORY: LUE PAIN, LUE PICC LINE, R/O DVT COMPARISON: None Available. TECHNIQUE: Two -dimensional and doppler sonographic evaluation of the deep venous system of the left upper extremity. FINDINGS: Doppler evaluation shows normal color flow and normal phasicity and augmentation of the left subclavian, jugular, axillary, basilic, brachial, radial vein and ulnar vein. PICC line in the superior left cephalic vein. The left upper extremity deep veins showed normal occlusion with transducer pressure. Two-dimensional survey showed no echogenic thrombus within these veins. No thrombus around the PICC line. IMPRESSION: Duplex ultrasound evaluation of the left upper extremity deep venous system showing no deep venous thrombosis. PICC line in upper left cephalic vein with no surrounding thrombus. No complications. Electronically signed by: Eduardo Lima MD 12/26/2017 5:11 PM [employer]
== END 2017-12-26 17:51 | disposition home or self-care (01) ==
LOC: ER 15:13
DX: M79.622 Pain in left upper arm (principal); I10 Essential (primary) hypertension; K21.9 Gastro-esophageal reflux disease without esophagitis; E07.9 Disorder of thyroid, unspecified; I51.9 Heart disease, unspecified; Z45.2 Encounter for adjustment and management of vascular access device; Z79.2 Long term (current) use of antibiotics; Z79.899 Other long term (current) drug therapy; Z79.82 Long term (current) use of aspirin; Z88.5 Allergy status to narcotic agent; Z85.46 Personal history of malignant neoplasm of prostate; Z87.891 Personal history of nicotine dependence

== ENCOUNTER → 2018-01-01 | Outpatient (CLI) | payer OTHER | LOC: BFHH 09:48 | DX: T87.44 Infection of amputation stump, left lower extremity (principal); L02.416 Cutaneous abscess of left lower limb ==

== ENCOUNTER → 2018-01-10 | Outpatient (CLI) | payer OTHER | LOC: GMAL 16:39 | PROVIDERS: ATTEND Family Medicine | DX: E53.8 Deficiency of other specified B group vitamins (principal); E55.9 Vitamin D deficiency, unspecified ==

== ENCOUNTER → 2018-01-17 | Outpatient (CLI) | payer OTHER | LOC: GMAL 19:10 | PROVIDERS: ATTEND Family Medicine | DX: I50.9 Heart failure, unspecified (principal) ==

== ENCOUNTER → 2018-01-19 | Outpatient (CLI) | payer OTHER ==
--- NOTE | 2018-01-22 08:09 | CT ---
Study: CT cervical spine. Indication: NECK PAIN Technique: Axial CT images were acquired through the cervical spine without intravenous contrast. Coronal and sagittal reformats performed. This exam was performed according to our departmental dose-optimization program, which includes automated exposure control, adjustment of the mA and/or kV according to patient size and/or use of iterative reconstruction technique. Comparison: None. Findings: The C4 level inferiorly is not well evaluated due to streak artifact from patient's shoulders. Vertebral body height maintained. Straightening cervical spine. Pedicles congenitally short throughout. No gross displaced fracture. C1-C2: Osteoarthritis at the articulation of the dens and the anterior arch of C1. No spinal canal narrowing. C2-C3: Trace anterolisthesis. Mild disc space height loss. 2.5 mm disc osteophyte complex. Mild spinal canal narrowing. Severe right and moderate left facet arthrosis. Mild bilateral uncovertebral hypertrophy. Mild bilateral neural foraminal narrowing. C3-C4: Minimal disc space height loss. No spinal canal narrowing. Moderate left and mild right uncovertebral hypertrophy with moderate left and mild right neural foraminal narrowing. Mild bilateral facet arthrosis. C4-C5: Mild disc space height loss. Mild bilateral uncovertebral hypertrophy and mild to moderate bilateral neural foraminal narrowing. No spinal canal narrowing. C5-C6: Moderate to severe disc space height loss. 3 mm disc osteophyte complex. Moderate spinal canal narrowing. Moderate bilateral uncovertebral hypertrophy with moderate to severe left and moderate right neural foraminal narrowing. C6-C7: Mild to moderate disc space height loss. 2 mm disc osteophyte complex with at least mild spinal canal narrowing. No neural foraminal narrowing. C7-T1: There is unremarkable Impression: Multilevel cervical disc disease, most pronounced at C5-C6 but difficult to evaluate due to streak artifact from the patient's shoulders. Dedicated MRI cervical spine could better evaluate as clinically indicated. Electronically signed by: Karl Del Rio MD 01/22/2018 8:07 AM [employer]
== END ==
LOC: CT 13:13
PROVIDERS: ATTEND Family Medicine
DX: M50.11 Cervical disc disorder with radiculopathy, high cervical region (principal); M50.121 Cervical disc disorder at C4-C5 level with radiculopathy; M50.122 Cervical disc disorder at C5-C6 level with radiculopathy; M50.123 Cervical disc disorder at C6-C7 level with radiculopathy

== ENCOUNTER 2018-01-31 05:56 | Day surgery (SDC) | payer OTHER ==
[2018-01-31] MEDS ORDERED: LACTATED RINGERS 1,000 ML ONE (06:18)
[2018-01-31] MEDS ORDERED: PROPOFOL 200 MG/20 ML VIAL IV ONE (10:00)
[2018-01-31] MEDS ORDERED: MIDAZOLAM INJ 2 MG/2 ML VIAL ONE (11:08)
[2018-01-31] MEDS ORDERED: fentaNYL CITRATE INJ 50 MCG/ML AMP ONE (11:08)
--- NOTE | 2018-01-31 11:56 | OP ---
DATE OF PROCEDURE: 01/31/18 PREOPERATIVE DIAGNOSIS: 1. Average risk colon cancer screening, the last colonoscopy was in 2007. POSTOPERATIVE DIAGNOSIS: 1. Diverticulosis. PROCEDURE: 1. Colonoscopy. SURGEON: Shabbir Mcgarry MD. COMPLICATIONS: None apparent. BLOOD LOSS: None. MEDICATIONS: Monitored anesthesia care. DESCRIPTION OF PROCEDURE: Informed consent was obtained prior to sedation. The preprocedure cardiopulmonary assessment was satisfactory. The patient was placed in the left lateral decubitus position and was sedated. A digital rectal exam reveals no rectal masses. The prostate is not enlarged because he has had treatment for prostate cancer. The tip of the Olympus colonoscope was inserted in the rectum and guided over to the cecum. The cecum was identified by locating the ileocecal valve and appendiceal orifice. Prep was fair to poor. There were areas of solid stool and food debris scattered throughout the colon. This precluded me from getting a satisfactory look of the overall colon mucosa. Small polyps could certainly have been overlooked. There was no large colon cancer identified, but if there was a tiny cancer starting underneath some obscuring stool, it could have been overlooked. I did the best I could at examining the cecum, ascending colon, hepatic flexure, transverse colon, splenic flexure, descending colon and sigmoid colon. Direct and retroflexed views of the rectum were obtained. The patient did have some diverticulosis in the sigmoid colon. RECOMMENDATIONS: Ideally, he would have a followup colonoscopy in a year or two and he would certainly require a much better prep. Physically, he may not be up for followup colonoscopy in the future. However, if Dr. Echols feels like clinically it is indicated, then we could consider repeating colonoscopy in a year or two. #[id number] cc: Adrian Echols MD [facility]
[2018-01-31 13:27] VITALS: BP 141/60; TEMP 97; O2SAT 96
== END 2018-01-31 12:05 | disposition home or self-care (01) ==
LOC: AMB 05:56
PROVIDERS: ATTEND Internal Medicine Gastroenterology
DX: Z12.11 Encounter for screening for malignant neoplasm of colon (principal); K57.30 Diverticulosis of large intestine without perforation or abscess without bleeding; K76.0 Fatty (change of) liver, not elsewhere classified; Z88.5 Allergy status to narcotic agent; Z98.84 Bariatric surgery status; Z85.46 Personal history of malignant neoplasm of prostate; Z92.3 Personal history of irradiation; Z89.612 Acquired absence of left leg above knee; Z79.899 Other long term (current) drug therapy
CPT/HCPCS: 00812; G0121; J2250; J3010; J3490; J7120

== ENCOUNTER → 2018-02-20 | Outpatient (CLI) | payer OTHER | LOC: GMAL 17:19 | PROVIDERS: ATTEND Family Medicine | DX: L03.90 Cellulitis, unspecified (principal) ==

== ENCOUNTER → 2018-10-08 | Outpatient (CLI) | payer OTHER | LOC: GMAL 19:57 | PROVIDERS: ATTEND Family Medicine | DX: D53.9 Nutritional anemia, unspecified (principal); E03.9 Hypothyroidism, unspecified; I10 Essential (primary) hypertension; E78.49 Other hyperlipidemia ==

== ENCOUNTER 2018-10-23 15:03 | Emergency (ER) | payer OTHER ==
[2018-10-23] MEDS ORDERED: EPINEPHrine INJ 0.1 MG/ML 10 ML SYG IV ONE ×3 (15:25→15:31)
[2018-10-23] MEDS ORDERED: SODIUM BICARBONATE VIAL 50 MEQ/50 ML VIAL IV ONE (15:29)
[2018-10-23 15:58] VITALS: BP 0/0; TEMP 95; O2SAT 0
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
== END 2018-10-23 15:36 | disposition expired ==
LOC: EDBD 15:03 → ER 15:03 → MERGE 15:03 → ER 15:36
DX: I46.9 Cardiac arrest, cause unspecified (principal); S02.91XB Unspecified fracture of skull, initial encounter for open fracture; J96.01 Acute respiratory failure with hypoxia; J96.02 Acute respiratory failure with hypercapnia; S41.102A Unspecified open wound of left upper arm, initial encounter; S89.91XA Unspecified injury of right lower leg, initial encounter; V28.0XXA Motorcycle driver injured in noncollision transport accident in nontraffic accident, initial encounter; Y92.410 Unspecified street and highway as the place of occurrence of the external cause